=== PATIENT | female | born 1995 | race Caucasian/White ===

== ENCOUNTER 2020-02-15 02:42 | Emergency (ER) | payer OTHER, SELFPAY ==
[2020-02-15 02:59] VITALS: BP 109/69; PULSE 78; RESP 16; TEMP 36.9; BMI 26.9
--- NOTE | 2020-02-15 03:24 | ED_ITS ---
HPI - Headache General Chief Complaint: Headache Stated Complaint: HEADACHE Time Seen by Provider: 02/15/20 03:13 Source: patient Mode of arrival: ambulatory Limitations: no limitations History of Present Illness HPI Narrative: This is a 24-year-old female who presents with complaints of worsening right unilateral headache that she states is causing a lot of pain especially behind her right eye with some associated photosensitivity but denies any double or blurred vision. This is associated with nausea and she states that she has not had a headache like this before. She does endorse that there is a family history migraines. Otherwise, she denies fever, chills, shortness of breath, chest pain / palpitations, GI symptoms other than the nausea and denies any urinary pain/ burning / frequency. LMP- 01/23. Related Data Allergies Allergy/AdvReac Type Severity Reaction Status Date / Time No Known Allergies Allergy Unverified 12/28/19 16:45 [No Known Allergies*] Review of Systems Review of Systems: Pertinent positives and negatives as stated in HPI 10 point review of systems is otherwise negative. PMFSH Past Medical History Source: nursing notes reviewed Social History Social History Alcohol intake: never Smoked in Last 30 Days: No Use of substances other than those prescribed or required for medical reasons: No Advance Directives: No Physical Exam Vital Signs: Vital Signs: Vital Signs Temp Pulse Resp BP Pulse Ox 02/15/20 04:46 79 16 110/67 99 02/15/20 04:15 72 109/71 98 02/15/20 04:00 72 18 109/71 98 02/15/20 02:59 98.5 F 78 16 109/69 Body Mass Index 26.9 VITAL SIGNS: Reviewed. GENERAL: Well developed, well nourished, in no acute distress. HEAD: Normocephalic/atraumatic, EYES: PERRLA, EOMI intact without pain, no nystagmus/pallor/icterus noted EARS: Ext canals without abnormality, TMs non-bulging and non-erythematous NOSE: Nares patent bilateral OROPHARYNX: no oral lesions noted, posterior pharynx clear and non-erythematous without noted tonsillar enlargement/erythema/exudates NECK: Supple, no adenopathy LUNGS: Normal breath sounds. No adventitious sounds or accessory muscle use. SpO2<> CARDIOVASCULAR: Regular rate and rhythm without noted murmurs, no JVD or lower extremity edema. ABDOMEN: Soft, non-tender, non-distended with bowel sounds. No rigidity. No guarding. No palpable masses or hernias noted MUSCULOSKELETAL: No tenderness, deformities, or effusions noted on gross inspection. EXTREMITIES: No cyanosis, clubbing or edema. SKIN: Inspection of the skin reveals no rashes, ulcerations, jaundice, pallor, or petechiae. NEUROLOGIC: Alert and oriented x 4. Strength and sensation to light touch were grossly intact x 4 , cerebellar testing within normal limits, cranial nerves 2- 12 are grossly intact.. Course Course Course Narrative: This is a 24-year-old female with new onset of headache and appears to be migraine in nature, however there is no evidence neurologic deficits and no history to suggest more occult pathology such as mass. On re-evaluation patient has had complete resolution of her symptoms and will be discharged in stable condition with instructions follow-up with her primary care provider. MDM - Headache Lab Data Labs: Lab Results 02/15/20 Range/Units 03:45 Urine Color YELLOW Urine Appearance CLEAR Urine pH 6.0 (5.0-8.0) Ur Specific [place] >= 1.030 H (1.005-1.025) Urine Protein NEG (NEG-TRACE) MG/DL Urine Glucose (UA) NEG (NEG) MG/DL Urine Ketones NEG (NEG) MG/DL Urine Blood NEG (NEG) Urine Nitrite NEG (NEG) Ur Leukocyte Esterase NEG (NEG) Urine Test NEGATIVE (NEGATIVE) Discharge Plan Discharge Clinical Impression: Headache Qualifiers: Headache type: unspecified Headache chronicity pattern: acute headache Intractability: not intractable Qualified Code(s): R51.9 - Headache, unspecified Patient Disposition: Home, Self-Care Instructions: Acute Headache (ED) Additional Instructions: 1. Tylenol 1000 mg, orally, every 6 hours as needed for pain control. Do not exceed 4000 mg within 24 hours. 2. Ibuprofen 400 mg, orally with milk or food, every 6 hours as needed for pain control. 3. Increase fluid hydration especially with water. 4. Please follow-up with your primary care provider for further evaluation and management of your headache. The patient and/or family acknowledge understanding of results (as applicable), diagnosis, treatment plan, need for follow up, and symptoms that should prompt a return to the emergency room. Referrals: Seng Alvarez MD [Primary Care Provider] - 2 days ( For further evaluation management of new onset suspected migraine.)
[2020-02-15 04:00] VITALS: BP 109/71; PULSE 72; RESP 18; O2SAT 98
[2020-02-15 04:00] LABS: Glucose Urine UA NEG (NEG); Leukocyte Esterase Urine NEG (NEG); Nitrite Urine NEG (NEG); Specific Gravity - Urine >= 1.030 (1.005-1.025); Urine Blood NEG (NEG); Urine Ketones NEG (NEG); Urine Protein NEG (NEG-TRACE)
[2020-02-15] MEDS: Acetaminophen 325 MG TABLET 975 MG PO (04:01)
[2020-02-15] MEDS: 0.9 % Sodium Chloride 1,000 ML 1000 ML IV (04:01)
[2020-02-15 04:02] LABS: Appearance Urine CLEAR; Color Urine YELLOW
[2020-02-15] MEDS: diphenhydrAMINE HCL 50 MG/ML VIAL 25 MG IVPUSH (04:02)
[2020-02-15] MEDS: Ketorolac Tromethamine 15 MG/ML VIAL IVPUSH (04:02)
[2020-02-15] MEDS: Metoclopramide HCl 10 MG/2 ML VIAL IVPUSH (04:03)
[2020-02-15 04:05] LABS: UPreg QC Valid YES; Urine Pregnancy NEGATIVE (NEGATIVE)
[2020-02-15 04:15] VITALS: BP 109/71; PULSE 72; O2SAT 98
[2020-02-15 04:46] VITALS: BP 110/67; PULSE 79; RESP 16; O2SAT 99
--- NOTE | 2020-02-15 04:46 | PC.NURSE ---
pt states her pain is gone. vitals stable. skin pink warm and dry. pt is aox3
== END 2020-02-15 05:33 | disposition home or self-care (01) ==
PROVIDERS: Emergency Provider Student in an Organized Health Care Education/Training Program; PCP Internal Medicine
DX: R51.9 Headache, unspecified (principal); M25.522 Pain in left elbow; M25.521 Pain in right elbow
CPT/HCPCS: 81003; 81025; 96361; 96374; 96375; 99284; J1200; J1885; J2765

== ENCOUNTER 2020-03-17 16:01 | Emergency (ER) | payer OTHER, SELFPAY ==
[2020-03-17 16:21] VITALS: BP 108/70; PULSE 81; RESP 16; TEMP 36.7; O2SAT 99; BMI 27.2
--- NOTE | 2020-03-17 17:00 | ED_ITS ---
HPI - General Adult General Chief complaint: Trauma Stated complaint: BROKEN NOSE Time Seen by Provider: 03/17/20 16:25 Source: patient Mode of arrival: ambulatory History of Present Illness HPI narrative: 24-year-old female with no significant past medical history presenting to the emergency department after a fall. Patient states she was caring her groceries up the stairs and was going fast and she fell hitting her face. She denies LOC. She denies anticoagulant use. She states her friend told her that her nose looks broken and to come to the ED. She did have some bleeding from her nose previously which has stopped now. She denies swallowing blood. She denies headache, dizziness, vision changes, vision loss, oral pain, extremity injury, injury to chest, abdomen or back. No incontinence. Her tetanus is up-to-date. Treatments prior to arrival: none Related Data Allergies Allergy/AdvReac Type Severity Reaction Status Date / Time No Known Allergies Allergy Unverified 12/28/19 16:45 [No Known Allergies*] Review of Systems Constitutional: Constitutional: Denies headache(s) Eyes: Eyes: Denies blurry vision and Denies change in vision ENT: Denies dizziness, Denies headache(s), Denies neck pain and Reports nose pain Cardiovascular: Cardiovascular: Denies chest pain and Denies dyspnea Respiratory: Respiratory: Denies dyspnea Gastrointestinal: Gastrointestinal: Denies abdominal pain Musculoskeletal: Musculoskeletal: Denies neck pain Integumentary/Breasts: Comments: Abrasion Neurologic: Denies dizziness and Denies headache(s) Hematologic/Lymphatic: Hematologic/Lymphatic: Denies easy bleeding Allergic/Immunologic: Allergic/Immunologic: Reports no additional allergic/immunologic complaints [facility] Past Medical History Medical History No known health problems Social History Social History Alcohol intake: never Advance Directives: No Advance Directives Information Provided: Yes Physical Exam Vital Signs: Vital Signs: Last Vital Signs Temp 98.1 F 03/17/20 16:21 Pulse 81 03/17/20 16:21 Resp 16 03/17/20 16:21 BP 108/70 03/17/20 16:21 Pulse Ox 99 03/17/20 16:21 Body Mass Index 27.2 Const: Other: Sitting upright texting on the cellphone General: cooperative Orientation/consciousness: patient oriented x3 HENMT: Other: + swelling and tenderness to nose, no zygomatic, maxillar or mandibular tenderness, no trismus, no oral injury or lesions, dentition intact Head: Yes normocephalic, Yes atraumatic and No Santoyo's sign Ears: no external ear abnormalities General nose exam: Normal septum present, normal septum and Other nasal findings present (dried blood noted to nare, no spetal hematoma or deviation) Eyes: Pupils: Equal, round and reactive pupils present EOM: EOMs intact bilaterally Neck: Other: trachea midline Neck: Yes supple and No tender Chest: Chest palpation & inspection: normal inspection of the chest Resp: Effort & Inspection: normal respiratory effort Cardio: Rate: regular rate GI: Inspection: Yes normal to inspection and No distended Skin: Other: abrasion noted to frontal scalp and inferior to right eye, no lacerations, broken acrylic nail, nail bed intact Neuro: General: patient oriented x3 Cranial nerves: Yes Equal, round and reactive pupils present Gait exam (Neuro): Normal gait present Extrem: Other: moving all extremeties spontaneously, no obvious deformities General: Yes normal to inspection Medical Decision Making MDM Narrative Medical decision making narrative: 24-year-old female presenting to the emergency department after a fall Vital stable, nontoxic appearing, hemodynamically stable Full seems mechanical in nature. No presyncopal symptoms reported. Patient de nies LOC, not on anticoagulant use, low concern for intracranial hemorrhage. No concern for neck fracture given no midline tenderness. No injury to her limbs. No evidence thoracoabdominal injury. Patient does have nasal swelling concerning for possible fracture, discussed seeing ENT as an outpatient for this. No facial tenderness besides nasal tenderness to suggest additional fracture. Extraocular movements are intact, with concern for ocular entrapment. No trismus. No evidence of oral injury, dentition intact. She is otherwise neurovascularly intact. Discussed following up with ENT she continues to have swelling and a cosmetic defect to her nose. She is otherwise healthy and does not warrant antibiotics. No indication for imaging at this time. Supportive treatment discussed. Abrasions are superficial no indication for stitches, her tetanus is up-to-date per pt. Discharge Plan Discharge Clinical Impression: Contusion of nose, Fall, Abrasion of face Patient Disposition: Home, Self-Care Instructions: Nasal Contusion (ED) Additional Instructions: You were seen in the emergency department for a fall. You have swelling to your nose, you may have a broken nose. We recommend you wait 2-3 days for the swelling to decrease, if you have malalignment of your nose or appears to have a cosmetic defect we recommend you see the ENT surgeon to discuss further treatment. Return to the emergency department if your symptoms worsen, increased swelling, dizziness, headache, vision changes, weakness, or any other concerning symptoms. Referrals: Ariel Boyd [Physician] - 2 days (if you continue to have swelling or cosmetic defect to your nose )
== END 2020-03-17 17:20 | disposition home or self-care (01) ==
PROVIDERS: Emergency Provider Emergency Medicine; PCP Internal Medicine
DX: S00.33XA Contusion of nose, initial encounter (principal); S00.81XA Abrasion of other part of head, initial encounter; W10.9XXA Fall (on) (from) unspecified stairs and steps, initial encounter; Y93.01 Activity, walking, marching and hiking; Y92.009 Unspecified place in unspecified non-institutional (private) residence as the place of occurrence of the external cause; Y99.9 Unspecified external cause status
CPT/HCPCS: 99283; 99284

== ENCOUNTER 2020-04-21 18:02 | Emergency (ER) | payer OTHER, SELFPAY ==
[2020-04-21 18:14] VITALS: BP 117/71; PULSE 82; RESP 16; TEMP 36.8; O2SAT 98; BMI 25.0
--- NOTE | 2020-04-21 20:43 | XR_ITS ---
EXAMINATION: XR CHEST CLINICAL INFORMATION: Cough COMPARISON: Prior chest March 2018 TECHNIQUE: Frontal view of the chest was obtained. FINDINGS: No significant abnormality is noted involving the heart, lungs, mediastinum, bony thorax or soft tissues. XR/XR chest 1V IMPRESSION: Unremarkable examination.
[2020-04-21 21:06] LABS: MANUAL DIFF FLAG NO
--- NOTE | 2020-04-21 21:06 | ED_ITS ---
HPI - General Adult General Chief complaint: General Medical Stated complaint: VOMITING, Time Seen by Provider: 04/21/20 20:12 Source: patient Mode of arrival: ambulatory Limitations: no limitations History of Present Illness HPI narrative: 24-year-old female , about 8 weeks by date presented with flu-like symptoms, generalized body ache, cough, sore throat, unable to tolerate p.o. intake, patient declined any vaginal bleed, feels slight lower abdominal discomfort only with coughing. Patient had history of vomiting during pregnancies in the past. Related Data Allergies Allergy/AdvReac Type Severity Reaction Status Date / Time No Known Allergies Allergy Unverified 12/28/19 16:45 [No Known Allergies*] Review of Systems Review of Systems: All other systems are reviewed and are negative Constitutional: Reports as per HPI and Reports no additional constitutional complaints Eyes: Reports as per HPI and Reports no additional eye complaints Reports system reviewed and no additional complaints, except as documented Cardiovascular: Reports as per HPI and Reports no additional cardiovascular complaints Respiratory: Reports as per HPI and Reports no additional respiratory complaints Gastrointestinal: Reports as per HPI and Reports no additional gastrointestinal complaints Genitourinary: Reports no additional female genitourinary complaints Musculoskeletal: Reports no additional musculoskeletal complaints Skin/Breast: Reports system reviewed and no additional complaints, except as docu Psychiatric: Reports no additional psychiatric complaints Endocrine: Reports no additional endocrine complaints Hematologic/Lymphatic: Reports no additional hematologic/lymphatic complaints Allergic/Immunologic: Reports no additional allergic/immunologic complaints Reports system reviewed and no additional complaints, except as documented and Reports Abnormal speech present PMFSH Past Medical History Medical History No known health problems Social History Social History Alcohol intake: never Smoking Status: Never smoker Use of substances other than those prescribed or required for medical reasons: No Advance Directives: No Advance Directives Information Provided: Yes Physical Exam Vital Signs: Vital Signs: Last Vital Signs Temp 98.2 F 04/21/20 18:14 Pulse 76 04/21/20 21:11 Resp 18 04/21/20 21:11 BP 108/59 L 04/21/20 21:11 Pulse Ox 100 04/21/20 21:11 Body Mass Index 25.0 Vital signs have been reviewed as normal and appeared to be correct. Blood pressure normal. Heart rate normal. Respiration rate normal. Temperature normal. Oxygen saturation normal. Appearance: Alert. Oriented X3. No acute distress. Head: Normal external exam. Normocephalic. Atraumatic. No Santoyo signs noted. No raccoon eyes noted Eyes: PERRLA. EOMI. Conjunctiva and sclera normal. Eyelids normal. ENT: EAC normal. TM's Normal. Pharynx normal. Uvula midline. Moist mucous membranes. No trismus noted. No drooling noted. No muffled voice noted. Neck: Normal inspection. Neck supple. FROM. No adenopathy. Thyroid Normal. No meningeal signs. No neck mass noted. CVS: Normal heart rate and rhythm. Heart sound normal. No murmurs noted. Pulses normal throughout. Respiratory: No respiratory distress. Painless inspiration. Breath sounds normal. No wheezes/rales/rhonchi noted. Chest nontender. No accessory muscle usage noted or decreased air movement noted. Abdomen: Soft and nontender. Bowel sounds normal in all 4 quadrants. No distention noted. No organomegaly noted. No visible injury noted. Back: No CVA tenderness. Full range of motion noted. Skin: Skin warm and dry. Normal skin color. Normal skin turgor. No rashes/lesions/lacerations noted. Extremities: No lower extremity edema. Extremities exhibit normal range of motion. Extremities nontender. Neuro: Oriented X 3. No motor deficit. No sensory deficit. Reflexes normal. Course Course Course Narrative: Assessment and plan. 24-year-old female about 8 weeks by date presented with nausea and vomiting, symptoms which consistent with a viral syndrome, patient tested positive for COVID, otherwise rest of the labs are unremarkable, chest x-ray is unremarkable. Patient has no vaginal bleed or abdominal pain. Blood type is A positive and labs are unremarkable. Patient in the ED received IV fluids hydration/Zofran, patient feels better with IV fluids, able to tolerate p.o. intake. Patient will be discharged home and self quarantine for 2 weeks. Patient was instructed to seek immediate medical attention if any difficulty breathing or worsening of the symptoms. Medical Decision Making Lab Data Result diagrams: 04/21/20 20:59 04/21/20 20:59 Labs: Lab Results 04/21/20 04/21/20 04/21/20 Range/Units 20:59 20:59 20:59 WBC 2.9 L (4.8-10.8) X10*3/uL RBC 4.15 L (4.20-5.50) X10*6/uL Hgb 12.1 (12.0-16.0) g/dl Hct 35.0 L (37-47) % MCV 84.3 (80-98) fL MCH 29.2 (27.0-33.0) pg MCHC 34.6 (31.0-35.0) g/dl RDW 12.5 (11.0-16.0) % Plt Count 234 (160-400) X10*3/uL MPV 9.1 L (9.4-12.3) fL Immature Gran % (Auto) 0.0 (0.0-0.4) % Neut % (Auto) 57.6 (45-73) % Lymph % (Auto) 31.8 (20-40) % [place] % (Auto) 10.3 (2-11) % Eos % (Auto) 0.3 (0-4) % Baso % (Auto) 0.0 (0-2) % Lymph # (Auto) 0.9 L (1.2-4.9) X10*3/uL [place] # (Auto) 0.3 (0.1-1.2) X10*3/uL Eos # (Auto) 0.0 (0.0-0.4) X10*3/uL Baso # (Auto) 0.0 (0.0-0.2) X10*3/uL Abs Immat Gran (auto) 0.00 (0.00-0.03) X10*3/uL Absolute Neuts (auto) 1.7 L (2.0-8.3) X10*3/uL Absolute Nucleated RBC 0.000 (0.0-0.012) X10*3/uL Nucleated RBC % (auto) 0.0 (0.0-0.2) /100WBC Sodium 137 (135-145) mmol/L Potassium 4.2 (3.3-5.1) mmol/l Chloride 103 (96-108) mmol/L Carbon Dioxide 22 (22-29) mmol/L Anion Gap 16 (12-20) BUN 6 L (9-16) mg/dL Creatinine 0.57 (0.5-1.4) mg/dL Estim Creat Clear Calc 135.7 Estimated GFR > 60 Random Glucose 83 (60-115) mg/dL Calcium 8.8 (8.4-10.2) mg/dL Total Bilirubin 0.6 (0.0-1.0) mg/dL Direct Bilirubin 0.3 (0.0-0.5) mg/dL AST 31 (5-31) U/L ALT 36 H (0-31) U/L Alkaline Phosphatase 102 (39-117) U/L Total Protein 8.0 (6.5-8.0) g/dL Albumin 4.2 (3.5-5.0) g/dL Lipase 21 (8-78) U/L Beta HCG, Quant 338958 mIU/mL Coronavirus (PCR) POSITIVE A (Negative) Influenza Type A (PCR) NEGATIVE (Negative) Influenza Type B (PCR) NEGATIVE (Negative) RSV RNA Qual (PCR) NEGATIVE (Negative) Imaging Data Chest x-ray: Radiologist's impression: Unremarkable examination. 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 Referrals: Seng Alvarez MD [Primary Care Provider] - 2 weeks Stand Alone Forms: Work/School Release
[2020-04-21 21:08] LABS: Eosinophils Percent Auto 0.3 % (0-4); Hemoglobin 12.1 g/dl (12.0-16.0); Lymphocytes Absolute Auto 0.9 X10*3/uL (1.2-4.9); Lymphocytes Percent Auto 31.8 % (20-40); Mean Corpuscular HGB Conc 34.6 g/dl (31.0-35.0); Mean Corpuscular Hemoglobin 29.2 pg (27.0-33.0); Mean Corpuscular Volume 84.3 fL (80-98); Mean Platelet Volume 9.1 fL (9.4-12.3); Monocytes Absolute Auto 0.3 X10*3/uL (0.1-1.2); Monocytes Percent Auto 10.3 % (2-11); Neutrophils Absolute Auto 1.7 X10*3/uL (2.0-8.3); Neutrophils Percent Auto 57.6 % (45-73); Platelet Count 234 X10*3/uL (160-400); Red Blood Count 4.15 X10*6/uL (4.20-5.50); Red Cell Distribution Width 12.5 % (11.0-16.0); White Blood Count 2.9 X10*3/uL (4.8-10.8)
[2020-04-21] MEDS: ondansetron HCL 4 MG/2 ML VIAL IVPUSH (21:10)
[2020-04-21 21:11] VITALS: BP 108/59; PULSE 76; RESP 18; O2SAT 100
[2020-04-21] MEDS: 0.9 % Sodium Chloride 1,000 ML 999 ML IVCONT (21:11)
[2020-04-21 21:44] LABS: Alanine Aminotransferase 36 U/L (0-31); Albumin Level 4.2 g/dL (3.5-5.0); Alkaline Phosphatase 102 U/L (39-117); Anion Gap 16 (12-20); Aspartate Amino Transferase 31 U/L (5-31); Bilirubin Direct 0.3 mg/dL (0.0-0.5); Bilirubin Total 0.6 mg/dL (0.0-1.0); Blood Urea Nitrogen 6 mg/dL (9-16); Calcium 8.8 mg/dL (8.4-10.2); Carbon Dioxide 22 mmol/L (22-29); Chloride 103 mmol/L (96-108); Creatinine Clr Calc Pharmacy 135.7; Estimated Glomerular Filt Rate > 60; Glucose Random 83 mg/dL (60-115); Lipase 21 U/L (8-78); Potassium 4.2 mmol/l (3.3-5.1); Sodium 137 mmol/L (135-145)
[2020-04-21 22:54] LABS: Influenza A PCR NEGATIVE (Negative); Influenza B PCR NEGATIVE (Negative); Resp Syncy Virus RNA Qual PCR NEGATIVE (Negative); SARS COV2 PCR INHOUSE POSITIVE (Negative)
--- NOTE | 2020-04-21 23:49 | PC.NURSE ---
per md, patient does not meet clinical indication for oncall ultrasound team to come in. patient instructed to monitor for cramping/bleeding.
== END 2020-04-22 00:25 | disposition home or self-care (01) ==
PROVIDERS: Emergency Provider Emergency Medicine; PCP Internal Medicine
DX: O98.511 Other viral diseases complicating pregnancy, first trimester (principal); Z3A.08 8 weeks gestation of pregnancy
CPT/HCPCS: 0241U; 36415; 71045; 80048; 80076; 83690; 84702; 85025; 96361; 96374; 99284; J2405

== ENCOUNTER 2020-04-29 11:26 | Outpatient (REF) | payer OTHER, SELFPAY | END 2020-04-29 11:27 | disposition home or self-care (01) | LOC: HO.LAB 11:26 | PROVIDERS: PCP Internal Medicine; Visit Provider Internal Medicine | DX: Z20.822 Contact with and (suspected) exposure to COVID-19 (principal) | CPT/HCPCS: 36415; C9803; U0003 ==

== ENCOUNTER 2020-05-13 11:12 | Outpatient (REF) | payer OTHER, SELFPAY | END 2020-05-13 11:13 | disposition home or self-care (01) | LOC: HO.LAB 11:12 | PROVIDERS: Visit Provider Internal Medicine | DX: Z20.822 Contact with and (suspected) exposure to COVID-19 (principal) | CPT/HCPCS: 36415; C9803; U0003; U0005 ==

== ENCOUNTER 2020-10-16 17:09 | Emergency (ER) | payer OTHER, SELFPAY ==
[2020-10-16 18:12] VITALS: BP 111/62; PULSE 107; RESP 107; TEMP 36.3; O2SAT 100; BMI 29.2
--- NOTE | 2020-10-16 18:26 | ED.GENADULT ---
HPI - General Adult General Chief complaint: General Medical Stated complaint: discomfort - 33 weeks preg Time Seen by Provider: 10/16/20 18:22 Source: patient Mode of arrival: ambulatory Limitations: no limitations History of Present Illness MD complaint: URI back pain and intermittent contractions Onset (ago): hour(s) (12 hours ago) Location: mouth, back and abdomen Severity: mild Quality: aching and dull Pain Consistency: intermittent Relieving factors: none Exacerbating factors: none Associated symptoms: other (runny nose, sore throat, back pain intermittent contractions) Treatments prior to arrival: none and other (did try to call her OB today without a call back) Related Data Home Medications Medication Instructions Recorded Confirmed ferrous gluconate 1 tab PO QAM 10/16/20 10/16/20 Allergies Allergy/AdvReac Type Severity Reaction Status Date / Time No Known Allergies Allergy Verified 10/16/20 18:12 [No Known Allergies*] Review of Systems Review of Systems: Constitutional : No Weight loss, No Fever, pos Chills, No Fatigue, No Malaise ENT/Mouth : pos sore throat, pos Rhinorrhea Eyes: No Eye Pain, No Swelling, No Redness Cardiovascular : No Chest Pain, No SOB, No Dyspnea on Exertion, No Orthopnea, No Edema, No Palpitations Respiratory : No Cough, No Sputum, No Wheezing Gastrointestinal : No Nausea, No Vomiting, No Diarrhea, No Constipation, pos abdominal Pain, No Hematochezia, No Melena Genitourinary : No Dysuria, No Urinary Frequency, No Hematuria, no bleeding, no leakage of fluids Musculoskeletal : No joint pain, pos Myalgias, No Joint Swelling, pos backl pain Skin : No Skin Lesions, No rash Neuro : No Weakness, No Numbness, No Dizziness, No Headache Psych : No Anxiety/Panic, No Depression Heme/Lymph: No Bruising, No Bleeding,No Lymphadenopathy Endocrine : No Polyuria, No Polydipsia All other systems reviewed and are negative PMFSH Past Medical History Attestation statement: The following information was validated with the patient. Medical History COVID-19 Social History Social History (Updated 10/16/20 @ 18:59 by Kavita Shell DO) Alcohol intake: never Patient Tobacco Use Status: Never used Tobacco Smoked in Last 30 Days: No Use of substances other than those prescribed or required for medical reasons: No Advance Directives: No Advance Directives Information Provided: No Patient : Yes Physical Exam Vital Signs: Vital Signs: Last Vital Signs Temp 97.4 F 10/16/20 18:12 Pulse 80 10/16/20 19:36 Resp 18 10/16/20 19:36 BP 115/68 10/16/20 19:36 Pulse Ox 100 10/16/20 19:36 Body Mass Index 29.2 Appearance: Alert. Oriented X3. No acute distress. Eyes: Pupils equal, round and reactive to light. ENT: Pharynx normal. Neck: Normal inspection. Neck supple. CVS: Normal heart rate and rhythm. Pulses normal. Respiratory: No respiratory distress. Breath sounds normal. Abdomen: Soft and non-tender. : external os is 3 and internal feels 2 high riding steriole procedure Back: ttp along lower lumbar lateral spine no midline ttp Skin: Skin warm and dry. Normal skin color. Normal skin turgor. Extremities: No lower extremity edema. No calf ttp Neuro: Oriented X 3. No motor deficit. No sensory deficit. Course Course Course Narrative: call to the OB covering for Jaimie Griermanny - discussed suspicions of viral syndrome vs UTI but cannot fully rule out labor given her intermittent contractions all day and the fact that she had her two prior children at 35 and 36 weeks- Dr. Bernal states our OB needs to come to the ED to rule out labor and that she cannot make an assessment or offer advice. She would also not take the patient at [facility] to r/o labor given she is 33 weeks as the patient would then need to be transferred to [facility]. discussion with our OB Dr. Gerard given the patient is having intermittent contractions do not delay care and [place] [facility] [place], would not do pelvic exam as you could interfere with FFN results [place] [facility] [place] 650pm - patient aware and upset as she tried to contact her OB all day without a call back, discussed with [place] [facility] [place] need transfer to [place] at this time would recommend if she is stable to have OB here see her or have the patient go to [facility] - Dr. Multani dilation check under sterile precautions 3cm external 2cm internal having intermittent contractions about every 20 to 30 mins will [place] [facility] [place] about taking patient via ambulance now - Dr. Gerard aware and recommends transfer to [facility] again, IV line started repeat call to Dr. Carlson 724pm - accepts transfer 339pm, no medications at this time they will evaluate her Medical Decision Making MDM Narrative Medical decision making narrative: 25 yo female at 33 weeks cared for by [facility] OB but unable to reach them today woke up with c/o URI and low back pain with intermittent contractions - at this time UA ordered, COVID swab though she was positive back in April, PO tylenol call to her OB given her symptoms and intermittent contractions, no loss of fluids, possible viral syndrome vs UTI vs labor Lab Data Labs: Lab Results 10/16/20 10/16/20 Range/Units 18:47 18:54 Urine Color YELLOW Urine Appearance HAZY Urine pH 7.5 (5.0-8.0) Ur Specific [place] 1.010 (1.005-1.025) Urine Protein NEG (NEG-TRACE) MG/DL Urine Glucose (UA) NEG (NEG) MG/DL Urine Ketones NEG (NEG) MG/DL Urine Blood NEG (NEG) Urine Nitrite NEG (NEG) Ur Leukocyte Esterase NEG (NEG) COVID-19 (ROCIO) Negative (Negative) COVID-19 Clin Com See Note Critical Care Time Critical Care Time Critical Care Time: Yes Total Critical Care Time: 60 Attestation: medical consults, transfer to tertiary center I attest to this time spent taking care of the patient Discharge Plan Discharge Clinical Impression: Acute viral syndrome Abdominal pain Qualifiers: Abdominal location: generalized Qualified Code(s): R10.84 - Generalized abdominal pain Patient Disposition: Xfer Acute Care Hospital Transfer Details: [facility] Prescriptions: No Action ferrous gluconate 324 mg (38 mg iron) tablet 1 tab PO QAM RF: 0 Interventions: Acute Care Transfer Worksheet (ED) Last Done: 10/16/20 19:53 Discharge Date/Time: 10/16/20 19:54
[2020-10-16] MEDS: Acetaminophen 325 MG TABLET 650 MG PO (18:44)
[2020-10-16 19:00] LABS: Glucose Urine UA NEG (NEG); Leukocyte Esterase Urine NEG (NEG); Nitrite Urine NEG (NEG); PH 7.5 (5.0-8.0); Urine Blood NEG (NEG); Urine Ketones NEG (NEG); Urine Protein NEG (NEG-TRACE)
[2020-10-16 19:02] LABS: Appearance Urine HAZY; Color Urine YELLOW
[2020-10-16 19:10] LABS: COVID-19 Test Negative (Negative)
--- NOTE | 2020-10-16 19:14 | PC.NURSE ---
Per md pt is 1-2 cm dilated.
--- NOTE | 2020-10-16 19:23 | PM.OBCN ---
OB Consult Note - [facility] Data Service Date: 10/16/20 Primary Care Provider: Seng Alvarez MD Narrative I was consulted regarding Kylah Peter is a 25 year old female at 33 weeks of gestation who presented the emergency room complaining of runny nose and abdominal tightening. The patient is currently under the care at [facility], she called the office all day did not get a call back with the same symptoms so she decided to come into the emergency room. No vaginal bleeding or leakage of fluid no vaginal discharge or any other symptoms. COVID test was sent IV fluids started OB PMFSH Past Medical History Medical History COVID-19 Social History Social History (Updated 10/16/20 @ 18:59 by Kavita Shell DO) Alcohol intake: never Patient Tobacco Use Status: Never used Tobacco Smoked in Last 30 Days: No Use of substances other than those prescribed or required for medical reasons: No Advance Directives: No Advance Directives Information Provided: No Patient : Yes Meds Allergies Allergy/AdvReac Type Severity Reaction Status Date / Time No Known Allergies Allergy Verified 10/16/20 18:12 [No Known Allergies*] Active Medications: Current Medications Generic Name Dose Route Start Last Admin Trade Name Freq PRN Reason Stop Dose Admin Sodium Chloride 1,000 mls @ 999 mls/hr 10/16/20 19:30 Ns IVCONT 10/16/20 20:30 .[id number] SASCHA Home Medications Medication Instructions Recorded Confirmed Last Taken Type ferrous gluconate 1 tab PO QAM 10/16/20 10/16/20 Unknown History OB Consult Results Labs Labs: Urine 10/16/20 Range/Units 18:54 Urine Color YELLOW Urine Appearance HAZY Urine pH 7.5 (5.0-8.0) Ur Specific [place] 1.010 (1.005-1.025) Urine Protein NEG (NEG-TRACE) MG/DL Urine Glucose (UA) NEG (NEG) MG/DL OB - CN: A/P Assessment and Plan (1) : Status: Acute Assessment and Plan: I was called initially at 06:[address] Shell regarding this patient, recommended immediate transfer of the patient are the emergency room to [facility] since she is pre term with symptoms of labor with no availability of OB monitors and OB nurses, we had a discussion regarding the pros and cons of a pelvic exam, pros being making sure the patient is stable to be discharged versus the cons of a pelvic exam might cause false positive fibronectin. Second call was at 19:[address] Shell after she called [facility], who declined to accept the transfer and recommended a pelvic exam and to discharge the patient is from the emergency room and asked the patient to drive herself to [facility] triage area. Recommended pelvic exam to make sure the patient is stable prior to transfer. Third call by Dr. Shell at 07:21, cervical exam is 2 cm internal os, 3 cm external os. recommended betamethasone 12 mg IM stat and transfer the patient to stat by ambulance after calling [facility]. I inform Dr. Shell that I will come in to assist with the call to [facility] and with the patient management
[2020-10-16] MEDS: 0.9 % Sodium Chloride 1,000 ML 999 ML IVCONT (19:35)
[2020-10-16 19:36] VITALS: BP 115/68; PULSE 80; RESP 18; O2SAT 100
== END 2020-10-16 19:54 | disposition short-term general hospital (02) ==
PROVIDERS: Emergency Provider Emergency Medicine; PCP Internal Medicine
DX: O26.893 Other specified pregnancy related conditions, third trimester (principal); R10.84 Generalized abdominal pain; O98.513 Other viral diseases complicating pregnancy, third trimester; B34.9 Viral infection, unspecified; O09.213 Supervision of pregnancy with history of pre-term labor, third trimester; Z3A.33 33 weeks gestation of pregnancy; Z20.822 Contact with and (suspected) exposure to COVID-19; Z86.16 Personal history of COVID-19
CPT/HCPCS: 36415; 81003; 87635; 99285; 99291

== ENCOUNTER 2021-05-19 09:30 | Outpatient (REF) | payer OTHER, SELFPAY ==
[2021-05-19 09:54] LABS: MANUAL DIFF FLAG NO
[2021-05-19 10:05] LABS: Basophils Percent Auto 0.3 % (0-2); Eosinophils Percent Auto 0.3 % (0-4); Hematocrit 33.9 % (37.0-47.0); Hemoglobin 11.8 g/dl (12.0-16.0); Lymphocytes Absolute Auto 1.5 X10*3/uL (1.2-4.9); Lymphocytes Percent Auto 42.7 % (20-40); Mean Corpuscular HGB Conc 34.8 g/dl (31.0-35.0); Mean Corpuscular Hemoglobin 29.3 pg (27.0-33.0); Mean Corpuscular Volume 84.1 fL (80.0-98.0); Mean Platelet Volume 9.7 fL (9.4-12.3); Monocytes Absolute Auto 0.3 X10*3/uL (0.1-1.2); Monocytes Percent Auto 8.3 % (2-11); Neutrophils Absolute Auto 1.7 x10*3/uL (2.0-8.3); Neutrophils Percent Auto 48.4 % (45-73); Platelet Count 247 X10*3/uL (160-400); Red Blood Count 4.03 X10*6/uL (4.20-5.50); Red Cell Distribution Width 13.2 % (11.0-16.0); White Blood Count 3.5 X10*3/uL (4.8-10.8)
[2021-05-19 11:00] LABS: Alanine Aminotransferase 21 U/L (0-31); Albumin Level 4.1 g/dL (3.5-5.0); Alkaline Phosphatase 59 U/L (39-117); Anion Gap 10 (12-20); Aspartate Amino Transferase 16 U/L (5-31); Blood Urea Nitrogen 13 mg/dL (9-16); Calcium 9.2 mg/dL (8.4-10.2); Carbon Dioxide 25 mmol/L (22-29); Chloride 108 mmol/L (96-108); Estimated Glomerular Filt Rate > 60; Glucose Random 79 mg/dL (60-115); Potassium 4.3 mmol/L (3.3-5.1); Sodium 139 mmol/L (135-145); Total Protein 7.9 g/dL (6.5-8.0)
== END 2021-05-19 09:31 | disposition home or self-care (01) ==
LOC: HO.LAB 09:30
PROVIDERS: PCP Internal Medicine; Visit Provider Internal Medicine
DX: L71.9 Rosacea, unspecified (principal)
CPT/HCPCS: 36415; 80053; 85025

== ENCOUNTER 2021-07-11 19:29 | Emergency (ER) | payer OTHER, SELFPAY ==
--- NOTE | ~2021-07-11 | CT_ITS ---
EXAMINATION: CT ANGIOGRAM OF THE CHEST WITH CONTRAST (CT PULMONARY ANGIOGRAM FOR PE) CT ABDOMEN/PELVIS WITH CONTRAST CLINICAL INFORMATION: post op, shortness of breath and abd pain. Recent long flight COMPARISON: None TECHNIQUE: Prior to contrast administration, noncontrast localization images were obtained. Subsequently, multidetector volumetric imaging was performed from the thoracic inlet through the pubic symphysis following the administration of 85 mL Omnipaque 350 intravenous contrast. Postcontrast images of the chest were acquired during the pulmonary angiographic phase, while imaging through the abdomen and pelvis was performed during the portal venous phase. No contrast reaction reported Sagittal, coronal, and MIP oblique sagittal reformatted images were obtained on the CT workstation, uploaded to PACS, and reviewed. This CT examination was performed using dose optimization techniques as appropriate, variously including the following: *Automated exposure control *Adjustment of mA and/or kV according to patient size (this includes techniques or standardized protocols for targeted exams where dose is matched to indication/reason for exam; i.e. extremities or head) *Use of iterative reconstruction technique Total exam dose-length product 723 mGy-cm FINDINGS: QUALITY OF STUDY/CONTRAST BOLUS: Satisfactory. PULMONARY ARTERIES: No central or segmental pulmonary emboli. THORACIC AORTA: No aneurysm or dissection. LUNG: No focal consolidation, nodules or masses. PLEURA: No pleural effusion or pneumothorax. MEDIASTINUM: Normal heart size. No pericardial effusion. No hilar or mediastinal lymphadenopathy. No evidence of septal bowing or right heart strain. No reflux of contrast into the hepatic veins to suggest elevated right heart pressures. CHEST WALL/AXILLA: Bilateral retropectoral silicone breast implants. There is small fluid surrounding the left breast implant as well as increased fluid within the retroglandular fat of the left breast with respect to the right, and shotty left axillary lymph nodes. HEPATOBILIARY: Liver normal in size, contour and morphology. No suspicious lesions. No intra or extrahepatic biliary dilation. Gallbladder unremarkable. PANCREAS: Unremarkable. SPLEEN: Unremarkable. ADRENAL GLANDS: Unremarkable. morphology demonstrating symmetric enhancement. There is a subcentimeter simple cyst in the right kidney which is benign and requires no further follow-up. No suspicious renal cysts or masses. No hydronephrosis or perinephric abnormality.. GASTROINTESTINAL TRACT: No bowel related abnormalities. PELVIC VISCERA: Unremarkable. LYMPH NODES: No lymphadenopathy. PERITONEUM/BODY WALL: No ascites. There is fat stranding within the lower abdominal subcutaneous fat in the transversely oriented fluid collection superficial to the rectus musculature most compatible with a seroma in the setting of abdominoplasty/panniculectomy. Fat stranding also present within the subcutaneous fat posteriorly along the lower back and bilateral flank regions. VASCULAR STRUCTURES: Unremarkable. OSSEOUS STRUCTURES: No acute or suspicious osseous abnormalities. CT/CT angio chest PE protocol IMPRESSION: * No evidence of pulmonary embolism * No acute pulmonary parenchymal abnormalities. * No acute visceral abdominopelvic abnormality. * Bilateral retropectoral silicone breast implants. There is simple fluid surrounding the left breast implant as well as increased edema/fluid within the retroglandular fat of the left breast and reactive shotty left axillary lymph nodes, within normal limits in the early postoperative period. * Small/thin seroma within the lower abdominal subcutaneous fat overlying the rectus musculature as well as subcutaneous fat stranding within the lower abdominal subcutaneous fat, along the lower back and in the bilateral flank regions compatible with post abdominoplasty changes. VTE:
[2021-07-11 19:52] VITALS: BP 132/81; PULSE 96; RESP 14; TEMP 37.1; O2SAT 100; BMI 27.4
[2021-07-11 20:16] LABS: MANUAL DIFF FLAG NO
[2021-07-11 20:19] LABS: Eosinophils Absolute Auto 0.1 X10*3/uL (0.0-0.4); Eosinophils Percent Auto 1.6 % (0-4); Imm Gran Abs Auto 0.01 X10*3/uL (0.00-0.03); Imm Gran Pct Auto 0.3 % (0.0-0.4); Lymphocytes Absolute Auto 1.3 X10*3/uL (1.2-4.9); Lymphocytes Percent Auto 34.2 % (20-40); Mean Corpuscular Hemoglobin 26.9 pg (27.0-33.0); Monocytes Absolute Auto 0.3 X10*3/uL (0.1-1.2); Neutrophils Absolute Auto 2.1 x10*3/uL (2.0-8.3); Neutrophils Percent Auto 56.9 % (45-73); Platelet Count 342 X10*3/uL (160-400); Red Cell Distribution Width 13.3 % (11.0-16.0); White Blood Count 3.7 X10*3/uL (4.8-10.8)
[2021-07-11 20:43] LABS: Albumin Level 3.8 g/dL (3.5-5.0); Alkaline Phosphatase 79 U/L (39-117); Anion Gap 10 (12-20); Bilirubin Total 0.4 mg/dL (0.0-1.0); Blood Urea Nitrogen 12 mg/dL (9-16); Calcium 9.1 mg/dL (8.4-10.2); Carbon Dioxide 25 mmol/L (22-29); Chloride 108 mmol/L (96-108); Creatinine Clr Calc Pharmacy 150.8; Estimated Glomerular Filt Rate > 60; Glucose Random 94 mg/dL (60-115); Potassium 4.1 mmol/L (3.3-5.1); Sodium 139 mmol/L (135-145); Total Protein 7.2 g/dL (6.5-8.0)
[2021-07-12 00:19] VITALS: PULSE 88; O2SAT 100
--- NOTE | 2021-07-12 00:50 | ED_ITS ---
HPI - General Adult General Chief complaint: Wound/Laceration Stated complaint: ?water retention, post surgery Time Seen by Provider: 07/11/21 21:53 Source: patient Mode of arrival: ambulatory Limitations: no limitations History of Present Illness HPI narrative: This is a 25-year-old female presenting to the emergency department with complaints of postop complications including pleuritic chest pain, shortness of breath, red swollen left breast. On 06/17/2021 patient had a [place] butt lift, tummy tuck and breast augmentation done in [place]. She came back from [place] on 07/01/2021 a flight that lasted approximately 5 hours. Patient reports no complications during surgery. She is not on blood thinners. Patient tells me she is having chest pain worse with inspiration. Substernal nonradiating. She is also complaining of shortness of breath worse with exertion. And she reports that her left breast is swollen, tender and red. She denies fevers and chills nausea, vomiting, abdominal pain, changes in bowel habits, abnormal bruising. Patient does not have any drains. She tells me that her wound care has been done by her masseuse. Onset (ago): day(s) (1) Location: chest and abdomen Radiation: non-radiation Severity: severe Severity scale (1-10): 10 Quality: stabbing and sharp Pain Consistency: constant Relieving factors: none Exacerbating factors: none Associated symptoms: denies other symptoms Treatments prior to arrival: none Related Data Previous Rx's Medication Instructions Recorded cephalexin 500 mg tablet 500 mg PO Q6H 7 Days #28 tab 07/12/21 doxycycline hyclate 100 mg capsule 100 mg PO BID 7 Days #14 cap 07/12/21 ferrous sulfate 325 mg (65 mg 325 mg PO DAILY #10 tab 07/12/21 iron) tablet,delayed release Allergies Allergy/AdvReac Type Severity Reaction Status Date / Time No Known Allergies Allergy Verified 07/11/21 20:02 Review of Systems Review of Systems: Constitutional : No Weight loss, No Fever, No Chills, No Fatigue, No Malaise ENT/Mouth : No sore throat, No Rhinorrhea Eyes: No Eye Pain, No Swelling, No Redness Cardiovascular : No Chest Pain, No SOB, No Dyspnea on Exertion, No Orthopnea, No Edema, No Palpitations Respiratory : No Cough, No Sputum, No Wheezing Gastrointestinal : No Nausea, No Vomiting, No Diarrhea, No Constipation, No abdominal Pain, No Hematochezia, No Melena Genitourinary : No Dysuria, No Urinary Frequency, No Hematuria, Musculoskeletal : No joint pain, No Myalgias, No Joint Swelling Skin : No Skin Lesions, No rash Neuro : No Weakness, No Numbness, No Dizziness, No Headache Psych : No Anxiety/Panic, No Depression All other systems reviewed and are negative Yes all other systems are reviewed and are negative [facility] Past Medical History Attestation statement: The following information was validated with the patient. Source: old records reviewed and nursing notes reviewed Social History Social History Advance Directives: No Physical Exam ED Vital Signs: Vital Signs - 24 hr 07/11/21 19:52 07/12/21 00:19 07/12/21 02:06 Temperature 98.8 F Pulse Rate 96 88 88 Respiratory Rate 14 Blood Pressure 132/81 Pulse Oximetry 100 100 100 BMI result Body Mass Index 27.4 Vital signs stable. Afebrile. Appearance: Alert.? Oriented X3.? No acute distress.? Head: Normocephalic, atraumatic, no step-offs or deformities Eyes: Pupils equal, round and reactive to light.? ENT: Pharynx normal.? Neck: Normal inspection.? Neck supple.? CVS: Normal heart rate and rhythm.? Pulses normal.? Respiratory: No respiratory distress.? Breath sounds normal.? Abdomen: Soft and nontender.? Skin: Skin warm and dry.? Normal skin color.? Normal skin turgor.? Breast: Red, tender, engorged left breast (worse around areola). Right breast normal. Left breast concerning for abscess/cellulitis. Extremities: No lower extremity edema.? No calf ttp. 5/5 strength to bilateral upper and lower extremities Back: No midline tenderness, no C-spine tenderness, full range of motion, no CVA tenderness bilaterally Neuro: Oriented X 3.? No motor deficit.? No sensory deficit. CN 2-12 intact Course Reevaluation(s) Reevaluation #1: CBC with a leukopenia, and a normocytic anemia which patient tells me she has always had. She denies being on her menses and rectal bleeding. No acute electrolyte abnormalities. Lactic acid within normal limits. Troponin negative, EKG nonischemic. Unlikely ACS. BNP normal unlikely heart failure. D-dimer was elevated could be secondary to postsurgical state. CTA with no PE. There is no evidence of parenchymal abnormalities or pneumonia. There is retropectoral silicone breast implants. And there is simple fluid surrounding the left breast which could be normal in the postoperative setting. There small/than seromas within the lower abdomen subcutaneous fat overlying the rectus musculature with some fat stranding again likely normal findings status post operation. At this time patient's history and physical examination consistent with cellulitis to the left breast. Patient will be placed on antibiotic therapy. Dual treatment. I will advise her to follow-up with her PCP. I also advised her to return with new or worsening symptoms. Her lungs are clear upon my exam. Vital signs are stable she is saturating 100% on room air normal respirations. Patient does tell me she feels slightly anxious. Shortness of breath could be secondary to anxiety. Vital signs are stable PE has been ruled out. Time: 02:14 Medical Decision Making MDM Narrative Medical decision making narrative: [age] yo m presents w/ post op complications, sob and pleuritic CP X1 day. Breast augmentation, [place] butt lift, tummy tuck done in [place] in June 2021. Recent travel PE significant for red swollen, warm, tender left breast. RRR. Lungs clear. Abdomen soft non tender non distended. Negative elizabeth b/l. VSS Will rule out abscess. Internal bleeding. PE. Medical Records Medical records reviewed: Yes I reviewed the patient's medical records. Lab Data Lab results reviewed: Yes I reviewed the patient's lab results. Result diagrams: 07/11/21 20:11 07/11/21 20:10 Labs: Lab Results 07/11/21 07/11/21 07/12/21 Range/Units 20:10 20:11 00:50 WBC 3.7 L (4.8-10.8) X10*3/uL RBC 3.27 L (4.60-5.80) X10*6/uL Hgb 8.8 L (14.0-18.0) g/dl Hct 27.8 L (42.0-52.0) % MCV 85.0 (80.0-98.0) fL MCH 26.9 L (27.0-33.0) pg MCHC 31.7 (31.0-36.0) g/dl RDW 13.3 (11.0-16.0) % Plt Count 342 (160-400) X10*3/uL MPV 9.2 L (9.4-12.4) fL Immature Gran % (Auto) 0.3 (0.0-0.4) % Neut % (Auto) 56.9 (45-73) % Lymph % (Auto) 34.2 (20-40) % [place] % (Auto) 7.0 (2-11) % Eos % (Auto) 1.6 (0-4) % Baso % (Auto) 0.0 (0-2) % Lymph # (Auto) 1.3 (1.2-4.9) X10*3/uL [place] # (Auto) 0.3 (0.1-1.2) X10*3/uL Eos # (Auto) 0.1 (0.0-0.4) X10*3/uL Baso # (Auto) 0.0 (0.0-0.2) X10*3/uL Abs Immat Gran (auto) 0.01 (0.00-0.03) X10*3/uL Absolute Neuts (auto) 2.1 (2.0-8.3) x10*3/uL Absolute Nucleated RBC 0.000 (0.0-0.012) X10*3/uL Nucleated RBC % (auto) 0.0 (0.0-0.2) /100WBC D-Dimer High Sensitivty 760 NG/ML Sodium 139 (135-145) mmol/L Potassium 4.1 (3.3-5.1) mmol/L Chloride 108 (96-108) mmol/L Carbon Dioxide 25 (22-29) mmol/L Anion Gap 10 L (12-20) BUN 12 (9-16) mg/dL Creatinine 0.63 (0.5-1.4) mg/dL Estim Creat Clear Calc 150.8 Estimated GFR > 60 Random Glucose 94 (60-115) mg/dL Lactic Acid (0.5-2.0) mmol/L Calcium 9.1 (8.4-10.2) mg/dL Total Bilirubin 0.4 (0.0-1.0) mg/dL AST 18 (5-37) U/L ALT 41 H (0-40) U/L Alkaline Phosphatase 79 (39-117) U/L Troponin I High Sens (<3.5-35.0) ng/L B-Natriuretic Peptide (<100) pg/mL Total Protein 7.2 (6.5-8.0) g/dL Albumin 3.8 (3.5-5.0) g/dL 07/12/21 07/12/21 Range/Units 00:50 00:50 WBC (4.8-10.8) X10*3/uL RBC (4.60-5.80) X10*6/uL Hgb (14.0-18.0) g/dl Hct (42.0-52.0) % MCV (80.0-98.0) fL MCH (27.0-33.0) pg MCHC (31.0-36.0) g/dl RDW (11.0-16.0) % Plt Count (160-400) X10*3/uL MPV (9.4-12.4) fL Immature Gran % (Auto) (0.0-0.4) % Neut % (Auto) (45-73) % Lymph % (Auto) (20-40) % [place] % (Auto) (2-11) % Eos % (Auto) (0-4) % Baso % (Auto) (0-2) % Lymph # (Auto) (1.2-4.9) X10*3/uL [place] # (Auto) (0.1-1.2) X10*3/uL Eos # (Auto) (0.0-0.4) X10*3/uL Baso # (Auto) (0.0-0.2) X10*3/uL Abs Immat Gran (auto) (0.00-0.03) X10*3/uL Absolute Neuts (auto) (2.0-8.3) x10*3/uL Absolute Nucleated RBC (0.0-0.012) X10*3/uL Nucleated RBC % (auto) (0.0-0.2) /100WBC D-Dimer High Sensitivty NG/ML Sodium (135-145) mmol/L Potassium (3.3-5.1) mmol/L Chloride (96-108) mmol/L Carbon Dioxide (22-29) mmol/L Anion Gap (12-20) BUN (9-16) mg/dL Creatinine (0.5-1.4) mg/dL Estim Creat Clear Calc Estimated GFR Random Glucose (60-115) mg/dL Lactic Acid 0.8 (0.5-2.0) mmol/L Calcium (8.4-10.2) mg/dL Total Bilirubin (0.0-1.0) mg/dL AST (5-37) U/L ALT (0-40) U/L Alkaline Phosphatase (39-117) U/L Troponin I High Sens < 3.5 (<3.5-35.0) ng/L B-Natriuretic Peptide < 10 (<100) pg/mL Total Protein (6.5-8.0) g/dL Albumin (3.5-5.0) g/dL Critical Care Time Critical Care Time Critical Care Time: No Discharge Plan Discharge Clinical Impression: Post surgical complication, Cellulitis, Mild shortness of breath, Anxiety, Anemia Patient Disposition: Home, Self-Care Additional Instructions: Take your medications as prescribed. If you were prescribed antibiotics today, it is important that you take your medication to their entirety, do not skip any doses, do not finish them early. Is crucial that you follow-up with your primary care provider as soon as possible. You should also follow-up with your surgeon as soon as possible. Return to the emergency department with new or worsening symptoms. Such as fevers, chills, chest pain, shortness of breath, nausea, vomiting, dizziness, headache, vision changes, lethargy In case of emergency call 911 Your laboratory studies showed that you are anemic. Your cardiac enzymes and cardiac workup was negative. No signs of blood clot. Your imaging showed changes consistent with postoperative changes. I am treating you for a skin infection or cellulitis with antibiotics. Ferrous sulfate is a medication that will help with anemia. Please take this in the morning, you should take it with orange juice to help with absorption. This can make you slightly constipated this is normal. I only gave you a short supply I would like you to follow-up with her PCP and discuss further treatment of this anemia. You will likely require repeat lab work. If at any point you start bleeding from the rectum, having severe pain, worsening chest pain or shortness of breath, fevers, chills, leg swelling, nausea, vomiting or any new symptom you should return immediately. Apply warm compresses to the area. Prescriptions: New doxycycline hyclate 100 mg capsule 100 mg PO BID 7 Days Qty: 14 0RF cephalexin 500 mg tablet 500 mg PO Q6H 7 Days Qty: 28 0RF ferrous sulfate 325 mg (65 mg iron) tablet,delayed release (DR/EC) 325 mg PO DAILY Qty: 10 0RF Referrals: Seng Alvarez MD [Primary Care Provider] - 2 days Stand Alone Forms: Work/School Release
--- NOTE | 2021-07-12 00:56 | ECG_ITS ---
Test Reason : SHORTNESS OF BREATH Blood Pressure : / mmHG Vent. Rate : 083 BPM Atrial Rate : 083 BPM P-R Int : 176 ms QRS Dur : 078 ms QT Int : 340 ms P-R-T Axes : 061 063 043 degrees QTc Int : 399 ms Normal sinus rhythm Normal ECG No previous ECGs available Referred By: Augie Cordon Electronically Signed By:ARA WALL
[2021-07-12 01:08] LABS: Lactic Acid 0.8 mmol/L (0.5-2.0)
[2021-07-12 01:09] LABS: D Dimer High Sensitivity 760 NG/ML
[2021-07-12 01:18] LABS: B Type Natriuretic Peptide < 10 pg/mL (<100)
[2021-07-12] MEDS: iohexoL 350 MG/ML 100 ML INFUS..BTL 85 ML IV (01:31)
[2021-07-12 02:06] VITALS: PULSE 88; O2SAT 100
[2021-07-12] MEDS: Ketorolac Tromethamine 15 MG/ML VIAL 30 MG IVPUSH (02:59)
[2021-07-22 15:13] LABS: Hematocrit 27.8 % (37.0-47.0); Hemoglobin 8.8 g/dl (12.0-16.0); Mean Corpuscular HGB Conc 31.7 g/dl (31.0-35.0); Red Blood Count 3.27 X10*6/uL (4.20-5.50)
[2021-07-22 15:14] LABS: Mean Platelet Volume 9.2 fL (9.4-12.3)
[2021-07-22 15:16] LABS: Aspartate Amino Transferase 18 U/L (5-31)
[2021-07-22 15:17] LABS: Alanine Aminotransferase 41 U/L (0-31)
[2021-07-22 15:19] LABS: Troponin-I High Sensitivity < 3.5 ng/L (<3.5-17.0)
== END 2021-07-12 03:23 | disposition home or self-care (01) ==
PROVIDERS: Physician Assistant; Emergency Provider Student in an Organized Health Care Education/Training Program; PCP Internal Medicine
DX: N61.0 Mastitis without abscess (principal); T81.89XA Other complications of procedures, not elsewhere classified, initial encounter; Y83.4 Other reconstructive surgery as the cause of abnormal reaction of the patient, or of later complication, without mention of misadventure at the time of the procedure; Y92.9 Unspecified place or not applicable; R06.02 Shortness of breath; F41.9 Anxiety disorder, unspecified; D64.9 Anemia, unspecified
CPT/HCPCS: 36415; 71275; 74177; 80053; 83605; 83880; 84484; 85025; 85379; 87040; 93005; 96374; 99284; 99285; J1885; Q9967

== ENCOUNTER 2022-11-09 08:47 | Emergency (ER) | payer OTHER, SELFPAY ==
[2022-11-09 08:57] VITALS: BP 106/59; PULSE 68; RESP 17; TEMP 36.1; O2SAT 100; BMI 27.0
--- NOTE | 2022-11-09 09:32 | ED_ITS ---
HPI - General Adult General Chief complaint: General Medical Stated complaint: nausea vomiting ear pain Time Seen by Provider: 11/09/22 09:19 Source: patient Mode of arrival: ambulatory Limitations: no limitations History of Present Illness HPI narrative: 27 y/o F who is at 7 weeks gestation presents with bilateral earlobe pain, subjective fevers and chills for the past two days. She reports that she has had the earrings in for years but the area surrounding the earrings became inflamed and painful. She also reports N/V and 7/10 epigastric pain that seems to radiate diffusely over the abdomen. She has vomited 3x today and a few times yesterday. She reports scant amounts of bright red blood in vomit this morning. She was seen by urgent care yesterday who instructed her to remove the earrings, however her symptoms have not improved. She has not tried anything else for her discomfort. She denies any vaginal bleeding and cramping. She has not yet had care for this . Onset (ago): day(s) (2) Location: head (Earlobes, epigastric ) and abdomen Severity: moderate Severity scale (1-10): 7 Quality: constant Pain Consistency: constant Exacerbating factors: none Associated symptoms: fever/chills Treatments prior to arrival: none Related Data Home Medications Medication Instructions Recorded Confirmed ferrous gluconate 324 mg (38 mg 1 tab PO QAM 10/16/20 10/16/20 iron) tablet Previous Rx's Medication Instructions Recorded cephalexin 500 mg tablet 500 mg PO Q6H 7 days #28 tabs 07/12/21 doxycycline hyclate 100 mg capsule 100 mg PO BID 7 days #14 caps 07/12/21 ferrous sulfate 325 mg (65 mg 325 mg PO DAILY #10 tabs 07/12/21 iron) tablet,delayed release cephalexin 500 mg capsule 500 mg PO Q6H 5 days #20 caps 11/09/22 mupirocin 2 % topical ointment 1 appl topical TID #22 grams 11/09/22 Allergies Allergy/AdvReac Type Severity Reaction Status Date / Time No Known Allergies Allergy Verified 07/14/21 07:29 Review of Systems Review of Systems: Yes all other systems are reviewed and are negative [facility] Past Medical History Medical History (Updated 11/09/22 @ 10:49 by LEANNE Strauss) COVID-19 Social History Social History (System 07/14/21 @ 07:29 by Mona Banda) Alcohol intake: never Patient Tobacco Use Status: Never used Tobacco Advance Directives: No Advance Directives Information Provided: No Physical Exam ED Vital Signs: Vital Signs - 24 hr 11/09/22 08:57 11/09/22 11:24 Temperature 96.9 F 98.0 F Pulse Rate 68 58 Respiratory Rate 17 16 Blood Pressure 106/59 L 102/47 L Pulse Oximetry 100 100 Oxygen Delivery Method Room Air Room Air BMI result Body Mass Index 27.0 Appearance: Alert. Oriented X3. No acute distress. Head: normocephalic, atraumatic. Eyes: Pupils equal, round and reactive to light. ENT: Pharynx normal. No tonsillar swelling or exudate. TMs unremarkable. Bilateral lower earlobe erythema, swelling and crusting. Neck: Normal inspection. Neck supple. Tender R cervical lympadenopathy CVS: Normal heart rate and rhythm. Pulses normal. Respiratory: No respiratory distress. Breath sounds normal. Abdomen: Soft and moderately tender diffusely without any rebound or guarding. +BS x4 Skin: Skin warm and dry. Normal skin color. Normal skin turgor. No rashes. Extremities: No lower extremity edema. No joint swelling. Neuro/psych: Oriented X 3. No motor deficit. No sensory deficit. CN II-XII intact. Normal speech and cognition. Medications Administered Discontinued Medications Generic Name Dose Route Start Last Admin Trade Name Freq PRN Reason Stop Dose Admin Acetaminophen 650 mg 11/09/22 09:33 11/09/22 09:41 Acetaminophen 325 Mg Tablet PO 11/09/22 09:34 650 mg ONCE ONE Administration Omeprazole 40 mg 11/09/22 09:33 11/09/22 09:41 Omeprazole 40 Mg Capsule. PO 11/09/22 09:34 40 mg ONCE ONE Administration Ondansetron HCl 4 mg 11/09/22 09:33 11/09/22 09:41 Ondansetron Odt 4 Mg Tab.Lindadis TRANSLINGU 11/09/22 09:34 4 mg ONCE ONE Administration Medical Decision Making Medical Decision Making MDM Narrative: 27 y/o F who is at 7 weeks gestation presents with bilateral earlobe pain, subjective fevers and chills for the past two days. Exam revealed bilateral erythematous, swollen and crusted earlobes where her earrings were. TMs and ear canals were unremarkable and her hearing is unaffected, making otitis media or externa unlikely. Patient reports subjective fevers and chills and diffuse epigastric pain that began around the same time. Patient denies any lower abd ominal cramping, pain or vaginal bleeding which is reassuring, making ectopic unlikely. Epigastric pain is diffuse, exam was reassuring with no rebound or guarding. Lab workup including HCG quant, was ordered. Tylenol, Omeprazole and Zofran were ordered. lab workup unremarkable. feeling better after meds stable for d/c home with PO and topical abx for her ears. she has Ob appointment in a few days Differential Diagnosis Differential Diagnoses: The differential diagnosis associated with the presentation includes ear pain most likely due to localized cellulitis vs abscess, possible allergic dermatitis, less likely otitis externa or mastoiditis abd pain/N/V/D most likely due to 1st trimester symptoms, less likely hyperemesis gravidarum, pancreatitis, or choleystitis Lab Data MDM Lab Attestation statement: I reviewed the patient's lab results. chronic leukopenia, no longer anemic 11/09/22 09:39 11/09/22 09:39 Labs: Lab Results 11/09/22 11/09/22 11/09/22 Range/Units 09:39 09:39 10:25 WBC 3.4 L (4.8-10.8) X10*3/uL RBC 4.60 D (4.20-5.50) X10*6/uL Hgb 13.3 D (12.0-16.0) g/dl Hct 38.2 D (37.0-47.0) % MCV 83.0 (80.0-98.0) fL MCH 28.9 (27.0-33.0) pg MCHC 34.8 (31.0-35.0) g/dl RDW 12.5 (11.0-16.0) % Plt Count 254 D (160-400) X10*3/uL MPV 9.9 (9.4-12.3) fL Immature Gran % (Auto) 0.3 (0.0-0.4) % Neut % (Auto) 64.0 (45-73) % Lymph % (Auto) 27.8 (20-40) % [place] % (Auto) 7.6 (2-11) % Eos % (Auto) 0.3 (0-4) % Baso % (Auto) 0.0 (0-2) % Lymph # (Auto) 1.0 L (1.2-4.9) X10*3/uL [place] # (Auto) 0.3 (0.1-1.2) X10*3/uL Eos # (Auto) 0.0 (0.0-0.4) X10*3/uL Baso # (Auto) 0.0 (0.0-0.2) X10*3/uL Abs Immat Gran (auto) 0.01 (0.00-0.03) X10*3/uL Absolute Neuts (auto) 2.2 (2.0-8.3) x10*3/uL Absolute Nucleated RBC 0.000 (0.0-0.012) X10*3/uL Nucleated RBC % (auto) 0.0 (0.0-0.2) /100WBC Sodium 138 (135-145) mmol/L Potassium 3.8 (3.3-5.1) mmol/L Chloride 106 (96-108) mmol/L Carbon Dioxide 21 L (22-29) mmol/L Anion Gap 15 (12-20) BUN 6 L (9-16) mg/dL Creatinine 0.57 (0.5-1.4) mg/dL Estim Creat Clear Calc 131.8 Estimated GFR > 60 Random Glucose 80 (60-115) mg/dL Calcium 9.1 (8.4-10.2) mg/dL Total Bilirubin 1.3 H (0.0-1.0) mg/dL AST 21 (5-31) U/L ALT 36 H (0-31) U/L Alkaline Phosphatase 84 (39-117) U/L Total Protein 8.1 H (6.5-8.0) g/dL Albumin 4.2 (3.5-5.0) g/dL Beta HCG, Quant [id number] mIU/mL Tests considered The following testing was considered but not selected: considered an O/B U/S however no vaginal bleeding or pelvic cramping Prescription Management I considered prescription management with: Antibiotic and Other (antiemetic) Chronic Conditions Patient?s care impacted by: Other () Critical Care Time Critical Care Time Critical Care Time: No Discharge Plan Discharge Clinical Impression: Cellulitis, Patient Disposition: Home, Self-Care Instructions: (ED), Cellulitis (DC) Additional Instructions: your lab work today was reassuring use the topical antibiotic ointment as directed Take the prescribed antibiotics as directed, complete the entire course and do not miss any doses use warm compresses to the ear lobes several times per day Recommend over the counter Unisom - take 1 tablet along with vitamin B6 every night right before bed Try eating a cracker or something small immediately in the morning Combination of lemonade and potato chips has also been proven to be a combination to help nausea in Follow up with your workplace relations adviser If you develop new or worsening symptoms call 911 or come back to the ER for fu rther evaluation. Prescriptions: New mupirocin 2 % ointment 1 appl topical TID Qty: 22 0RF cephalexin 500 mg capsule 500 mg PO Q6H 5 Days Qty: 20 0RF No Action ferrous gluconate 324 mg (38 mg iron) tablet 1 tab PO QAM doxycycline hyclate 100 mg capsule 100 mg PO BID 7 Days Qty: 14 0RF cephalexin 500 mg tablet 500 mg PO Q6H 7 Days Qty: 28 0RF ferrous sulfate 325 mg (65 mg iron) tablet,delayed release (DR/EC) 325 mg PO DAILY Qty: 10 0RF Referrals: Seng Alvarez MD [Primary Care Provider] - Interventions: ED Discharge Assessment Last Done: 11/09/22 11:28
[2022-11-09] MEDS: Acetaminophen 325 MG TABLET 650 MG PO (09:41)
[2022-11-09] MEDS: Ondansetron ODT 4 MG TAB.RAPDIS TRANSLINGU (09:41)
[2022-11-09] MEDS: Omeprazole 40 MG CAPSULE.DR PO (09:41)
[2022-11-09 09:49] LABS: MANUAL DIFF FLAG NO
[2022-11-09 09:53] LABS: Eosinophils Percent Auto 0.3 % (0-4); Hematocrit 38.2 % (37.0-47.0); Hemoglobin 13.3 g/dl (12.0-16.0); Imm Gran Abs Auto 0.01 X10*3/uL (0.00-0.03); Imm Gran Pct Auto 0.3 % (0.0-0.4); Lymphocytes Percent Auto 27.8 % (20-40); Mean Corpuscular HGB Conc 34.8 g/dl (31.0-35.0); Mean Corpuscular Hemoglobin 28.9 pg (27.0-33.0); Mean Platelet Volume 9.9 fL (9.4-12.3); Monocytes Absolute Auto 0.3 X10*3/uL (0.1-1.2); Monocytes Percent Auto 7.6 % (2-11); Neutrophils Absolute Auto 2.2 x10*3/uL (2.0-8.3); Platelet Count 254 X10*3/uL (160-400); Red Cell Distribution Width 12.5 % (11.0-16.0); White Blood Count 3.4 X10*3/uL (4.8-10.8)
[2022-11-09 10:47] LABS: Alanine Aminotransferase 36 U/L (0-31); Albumin Level 4.2 g/dL (3.5-5.0); Alkaline Phosphatase 84 U/L (39-117); Anion Gap 15 (12-20); Aspartate Amino Transferase 21 U/L (5-31); Bilirubin Total 1.3 mg/dL (0.0-1.0); Blood Urea Nitrogen 6 mg/dL (9-16); Calcium 9.1 mg/dL (8.4-10.2); Carbon Dioxide 21 mmol/L (22-29); Chloride 106 mmol/L (96-108); Creatinine Clr Calc Pharmacy 131.8; Estimated Glomerular Filt Rate > 60; Glucose Random 80 mg/dL (60-115); Potassium 3.8 mmol/L (3.3-5.1); Sodium 138 mmol/L (135-145); Total Protein 8.1 g/dL (6.5-8.0)
[2022-11-09 11:24] VITALS: BP 102/47; PULSE 58; RESP 16; TEMP 36.7; O2SAT 100
== END 2022-11-09 11:29 | disposition home or self-care (01) ==
PROVIDERS: Emergency Provider Emergency Medicine; PCP Internal Medicine
DX: O26.891 Other specified pregnancy related conditions, first trimester (principal); H60.13 Cellulitis of external ear, bilateral; R11.2 Nausea with vomiting, unspecified; Z3A.01 Less than 8 weeks gestation of pregnancy
CPT/HCPCS: 36415; 80053; 84702; 85025; 99283

== ENCOUNTER 2023-05-31 09:47 | Emergency (ER) | payer OTHER, SELFPAY ==
[2023-05-31 10:01] VITALS: BP 119/69; PULSE 114; RESP 16; TEMP 36.6; O2SAT 98; BMI 29.3
[2023-05-31 10:43] LABS: MANUAL DIFF FLAG NO
[2023-05-31 10:50] LABS: Basophils Percent Auto 0.2 % (0-2); Eosinophils Percent Auto 0.1 % (0-4); Hematocrit 26.8 % (37.0-47.0); Hemoglobin 9.3 g/dl (12.0-16.0); Imm Gran Abs Auto 0.06 X10*3/uL (0.00-0.03); Imm Gran Pct Auto 0.7 % (0.0-0.4); Lymphocytes Absolute Auto 0.7 X10*3/uL (1.2-4.9); Lymphocytes Percent Auto 9.2 % (20-40); Mean Corpuscular HGB Conc 34.7 g/dl (31.0-35.0); Mean Corpuscular Hemoglobin 28.5 pg (27.0-33.0); Mean Corpuscular Volume 82.2 fL (80.0-98.0); Mean Platelet Volume 9.9 fL (9.4-12.3); Monocytes Absolute Auto 0.4 X10*3/uL (0.1-1.2); Monocytes Percent Auto 5.3 % (2-11); Neutrophils Absolute Auto 6.8 x10*3/uL (2.0-8.3); Neutrophils Percent Auto 84.5 % (45-73); Platelet Count 224 X10*3/uL (160-400); Red Blood Count 3.26 X10*6/uL (4.20-5.50); Red Cell Distribution Width 13.8 % (11.0-16.0); White Blood Count 8.1 X10*3/uL (4.8-10.8)
[2023-05-31 10:51] LABS: Prothrombin Time 12.4 SEC (11.1-13.3)
[2023-05-31 10:58] LABS: Alanine Aminotransferase 10 U/L (0-31); Albumin Level 3.2 g/dL (3.5-5.0); Alkaline Phosphatase 184 U/L (39-117); Anion Gap 17 (12-20); Aspartate Amino Transferase 15 U/L (5-31); Bilirubin Direct 0.1 mg/dL (0.0-0.5); Bilirubin Total 0.5 mg/dL (0.0-1.0); Blood Urea Nitrogen 5 mg/dL (9-16); Calcium 8.7 mg/dL (8.4-10.2); Carbon Dioxide 16 mmol/L (22-29); Chloride 102 mmol/L (96-108); Estimated Glomerular Filt Rate > 60; Glucose Random 98 mg/dL (60-115); Potassium 3.6 mmol/L (3.3-5.1); Sodium 131 mmol/L (135-145); Total Protein 7.5 g/dL (6.5-8.0)
[2023-05-31 11:27] LABS: Influenza A PCR NEGATIVE (Negative); Influenza B PCR NEGATIVE (Negative); Resp Syncy Virus RNA Qual PCR NEGATIVE (Negative); SARS COV2 PCR INHOUSE POSITIVE (Negative)
--- NOTE | 2023-05-31 15:44 | ED.CHESTPAIN ---
HPI - Chest Pain General Chief Complaint: Chest Pain Stated Complaint: COVID+/SOB, headache- Time Seen by Provider: 05/31/23 15:43 History of Present Illness HPI narrative: 27 y/o F patient; without significant PMH; presents from home with two days of central chest heaviness, shortness of breath, diffuse body aches, and nasal congestion. She reports one day of decreased PO intake. She is with NARDA 06/15/2023. The patient has known sick contact in her son. She otherwise denies: vomiting, diarrhea, abdominal pain. She denies vaginal bleeding. On time of evaluation patient endorsing abdominal contractions that began in the emergency department. Denying vaginal bleeding or release of fluids. Patient is followed by OBGYNatalia Hogan. Related Data Home Medications Medication Instructions Recorded Confirmed ferrous gluconate 324 mg (38 mg 1 tab PO QAM 10/16/20 10/16/20 iron) tablet Previous Rx's Medication Instructions Recorded cephalexin 500 mg tablet 500 mg PO Q6H 7 days #28 tabs 07/12/21 doxycycline hyclate 100 mg capsule 100 mg PO BID 7 days #14 caps 07/12/21 ferrous sulfate 325 mg (65 mg 325 mg PO DAILY #10 tabs 07/12/21 iron) tablet,delayed release cephalexin 500 mg capsule 500 mg PO Q6H 5 days #20 caps 11/09/22 mupirocin 2 % topical ointment 1 appl topical TID #22 grams 11/09/22 cephalexin 500 mg capsule 500 mg PO Q8H 7 days #21 caps 05/31/23 Allergies Allergy/AdvReac Type Severity Reaction Status Date / Time No Known Allergies Allergy Verified 07/14/21 07:29 Review of Systems Review of Systems: Yes all other systems are reviewed and are negative [facility] Past Medical History Attestation statement: The following information was validated with the patient. Source: unable to obtain Medical History COVID-19 Social History Social History Alcohol intake: never Patient Tobacco Use Status: Never used Tobacco Smoked in Last 30 Days: No Use of substances other than those prescribed or required for medical reasons: No Advance Directives: No Advance Directives Information Provided: No Physical Exam Vital Signs: Vital Signs: Last Vital Signs Temp 97.8 F 05/31/23 18:03 Pulse 100 05/31/23 18:03 Resp 16 05/31/23 18:03 BP 114/70 05/31/23 18:03 Pulse Ox 99 05/31/23 18:03 O2 Del Method Room Air 05/31/23 18:03 BMI result Body Mass Index 29.3 Patient is afebrile, tachycardic, normotensive. Const: General: cooperative HEENT: Head: Yes atraumatic Eyes: General: appearance normal, both eyes and all related structures Pupils: Equal, round and reactive pupils present EOM: EOMs intact bilaterally Neck: Neck: Yes normal visual inspection, Yes full ROM, Yes supple and No tender Chest: Chest palpation & inspection: normal inspection of the chest and normal palpation of entire chest wall Resp: Effort & Inspection: normal respiratory effort, able to speak in complete sentences, Actively coughing and no respiratory distress Auscultation: clear to auscultation bilaterally, no rales, no rhonchi and no wheezes Cardio: Rate: tachycardic Rhythm: regular rhythm Peripheral pulses: Peripheral pulses 2+ throughout GI: Other: Gravid abdomen Palpation (GI): nontender, no guarding and not rigid Auscultation: normal bowel sounds Neuro: Cranial nerves: Yes Equal, round and reactive pupils present Course Course Course Narrative: Reviewed triage work up. Patient noted to be COVID positive. Reevaluation(s) Reevaluation #1: Laboratory studies without leukocytosis. Hgb 9.3. Sodium 131. Bicarb 16. COVID +. Given low bicarb with reported poor PO intake, will provide 2L IVF. Patient re-evaluated after first liter, reports continued contractions every 3 - 5min. UA with evidence of asymptomatic cystitis, will provide one dose Cefritraxone given patient's active contractions and plan for rx Keflex. Discussed with patient's covering OBGYN at the [facility] ([facility], [place]) who recommend that as patient has been in this ED for 8+ hours without further progression of labor she is a candidate for discharge to home with follow up in the [facility] if her contractions should continue. heart rate reassuring at 155BPM. No release of amniotic fluid noted. Cervical exam noted 4cm dilated with softening. Concern for low position of head on bedside US. Re-discussed with covering physician at [facility] - agreeable for transfer for OBGYN evaluation. Patient in agreement. Plan: Discharge to home with OBGYN and PCP follow up Return precautions given Rx 7 days TID Keflex sent to pharmacy Medications Administered Discontinued Medications Generic Name Dose Route Start Last Admin Trade Name Freq PRN Reason Stop Dose Admin Sodium Chloride 1,000 mls @ 999 mls/hr 05/31/23 16:00 05/31/23 18:44 Ns IV 05/31/23 18:00 Infused .Q1H1M SASCHA Infusion Ceftriaxone Sodium 1 gm/ 50 mls @ 100 mls/hr 05/31/23 17:39 05/31/23 19:23 Sodium Chloride IV 05/31/23 18:08 Infused ONCE ONE Infusion Medical Decision Making Lab Data 05/31/23 10:36 05/31/23 10:36 Labs: Lab Results 05/31/23 05/31/23 Range/Units 10:36 16:31 WBC 8.1 (4.8-10.8) X10*3/uL RBC 3.26 L D (4.20-5.50) X10*6/uL Hgb 9.3 L D (12.0-16.0) g/dl Hct 26.8 L D (37.0-47.0) % MCV 82.2 (80.0-98.0) fL MCH 28.5 (27.0-33.0) pg MCHC 34.7 (31.0-35.0) g/dl RDW 13.8 (11.0-16.0) % Plt Count 224 (160-400) X10*3/uL MPV 9.9 (9.4-12.3) fL Immature Gran % (Auto) 0.7 H (0.0-0.4) % Neut % (Auto) 84.5 H (45-73) % Lymph % (Auto) 9.2 L (20-40) % [place] % (Auto) 5.3 (2-11) % Eos % (Auto) 0.1 (0-4) % Baso % (Auto) 0.2 (0-2) % Lymph # (Auto) 0.7 L (1.2-4.9) X10*3/uL [place] # (Auto) 0.4 (0.1-1.2) X10*3/uL Eos # (Auto) 0.0 (0.0-0.4) X10*3/uL Baso # (Auto) 0.0 (0.0-0.2) X10*3/uL Abs Immat Gran (auto) 0.06 H (0.00-0.03) X10*3/uL Absolute Neuts (auto) 6.8 (2.0-8.3) x10*3/uL Absolute Nucleated RBC 0.000 (0.0-0.012) X10*3/uL Nucleated RBC % (auto) 0.0 (0.0-0.2) /100WBC PT 12.4 (11.1-13.3) SEC INR 1.0 (0.9-1.1) Sodium 131 L (135-145) mmol/L Potassium 3.6 (3.3-5.1) mmol/L Chloride 102 (96-108) mmol/L Carbon Dioxide 16 L (22-29) mmol/L Anion Gap 17 (12-20) BUN 5 L (9-16) mg/dL Creatinine 0.61 (0.5-1.4) mg/dL Estim Creat Clear Calc 128.0 Estimated GFR > 60 Random Glucose 98 (60-115) mg/dL Calcium 8.7 (8.4-10.2) mg/dL Total Bilirubin 0.5 (0.0-1.0) mg/dL Direct Bilirubin 0.1 (0.0-0.5) mg/dL AST 15 (5-31) U/L ALT 10 (0-31) U/L Alkaline Phosphatase 184 H (39-117) U/L Total Protein 7.5 (6.5-8.0) g/dL Albumin 3.2 L (3.5-5.0) g/dL Urine Color Yellow Urine Appearance Cloudy Urine pH 6.5 (5.0-9.0) Ur Specific [place] 1.010 (1.005-1.025) Urine Protein Negative (Neg-Trace) mg/dL Urine Glucose (UA) Negative (Negative) mg/dL Urine Ketones Negative (Negative) mg/dL Urine Blood Negative (Negative) Urine Nitrite Negative (Negative) Ur Leukocyte Esterase Large (3+) H (Negative) Urine RBC 0-2 (0-2) /HPF Urine WBC 21-50 H (0-5) /HPF Ur Squamous Epith Cells 11-20 (0-2) /HPF Urine Bacteria 4+ (None Seen) Hyaline Casts 0-2 (0-2) /LPF Influenza Type A (PCR) NEGATIVE (Negative) Influenza Type B (PCR) NEGATIVE (Negative) RSV RNA Qual (PCR) NEGATIVE (Negative) SARS-CoV-2 RNA (RT-PCR) POSITIVE A (Negative) Discharge Plan Discharge Clinical Impression: COVID-19, , Cystitis Patient Disposition: Xfer Other Transfer Details: [facility] Instructions: Urinary Tract Infection in Women (DC) Additional Instructions: As we discussed, you were seen today for flu like symptoms and found to be positive for COVID. Your urine was also tested which found a urine infection. We spoke to your covering OBGYN about your contractions. They are in agreement to evaluate you at the [facility]. Return to the emergency department for: Difficulty breathing Chest pain Abdominal pain Passing out Prescriptions: New cephalexin 500 mg capsule 500 mg PO Q8H 7 Days Qty: 21 0RF No Action ferrous gluconate 324 mg (38 mg iron) tablet 1 tab PO QAM doxycycline hyclate 100 mg capsule 100 mg PO BID 7 Days Qty: 14 0RF cephalexin 500 mg tablet 500 mg PO Q6H 7 Days Qty: 28 0RF ferrous sulfate 325 mg (65 mg iron) tablet,delayed release (DR/EC) 325 mg PO DAILY Qty: 10 0RF mupirocin 2 % ointment 1 appl topical TID Qty: 22 0RF cephalexin 500 mg capsule 500 mg PO Q6H 5 Days Qty: 20 0RF Referrals: Seng Alvarez MD [Primary Care Provider] - Interventions: ED Discharge Assessment Last Done: 05/31/23 19:24 Discharge Date/Time: 05/31/23 19:26
--- NOTE | 2023-05-31 15:56 | PC.NURSE ---
heart rate is 155
[2023-05-31 16:33] VITALS: BP 116/76; PULSE 105; RESP 25; O2SAT 98
[2023-05-31 16:44] LABS: Appearance Urine Cloudy; Color Urine Yellow; Glucose Urine UA Negative (Negative); Leukocyte Esterase Urine Large (3+) (Negative); Nitrite Urine Negative (Negative); PH 6.5 (5.0-9.0); UMIC TRIGGER UACC YES; Urine Blood Negative (Negative); Urine Ketones Negative (Negative); Urine Protein Negative (Neg-Trace)
[2023-05-31 16:48] LABS: Bacteria Urine 4+ (None Seen); Hyaline Casts Urine 0-2 /LPF (0-2); RBC Urine 0-2 /HPF (0-2); UACC Culture Trigger YES; WBC Urine 21-50 /HPF (0-5)
[2023-05-31] MEDS: 0.9 % Sodium Chloride 1,000 ML 999 ML IV ×2 (17:03→17:31)
[2023-05-31 18:03] VITALS: BP 114/70; PULSE 100; RESP 16; TEMP 36.6; O2SAT 99
--- NOTE | 2023-05-31 18:45 | PC.NURSE ---
patient did receive 2 liters of NS without any complications
[2023-05-31] MEDS: cefTRIAXone sodium 1 GM in 0.9 % Sodium Chloride 50 ML IV (19:01)
--- NOTE | 2023-05-31 19:23 | PC.NURSE ---
pt d/c with chuy ems 20g IV R. AC. pt reports some pain upon d/c. nad ambulatory with steady gait onto stretcher.
== END 2023-05-31 19:26 | disposition other institution (70) ==
PROVIDERS: Emergency Provider Emergency Medicine; PCP Internal Medicine
DX: U07.1 COVID-19 (principal); N30.90 Cystitis, unspecified without hematuria; R07.89 Other chest pain; R06.02 Shortness of breath; R51.9 Headache, unspecified; Z79.899 Other long term (current) drug therapy
CPT/HCPCS: 0241U; 80048; 80076; 81001; 85025; 85610; 87086; 96361; 96365; 99284; J0696

== ENCOUNTER 2023-09-27 11:45 | Outpatient (REF) | payer OTHER, SELFPAY ==
[2023-09-27 12:06] LABS: MANUAL DIFF FLAG NO
[2023-09-27 12:23] LABS: Basophils Percent Auto 0.5 % (0-2); Eosinophils Percent Auto 0.5 % (0-4); Hematocrit 36.6 % (37.0-47.0); Hemoglobin 12.3 g/dl (12.0-16.0); Lymphocytes Absolute Auto 1.5 X10*3/uL (1.2-4.9); Lymphocytes Percent Auto 39.3 % (20-40); Mean Corpuscular HGB Conc 33.6 g/dl (31.0-35.0); Mean Corpuscular Hemoglobin 27.1 pg (27.0-33.0); Mean Corpuscular Volume 80.6 fL (80.0-98.0); Mean Platelet Volume 9.9 fL (9.4-12.3); Monocytes Absolute Auto 0.3 X10*3/uL (0.1-1.2); Monocytes Percent Auto 7.6 % (2-11); Neutrophils Percent Auto 52.1 % (45-73); Platelet Count 277 X10*3/uL (160-400); Red Blood Count 4.54 X10*6/uL (4.20-5.50); Red Cell Distribution Width 14.2 % (11.0-16.0); White Blood Count 3.8 X10*3/uL (4.8-10.8)
[2023-09-27 13:01] LABS: Anion Gap 11 (12-20); Blood Urea Nitrogen 10 mg/dL (9-16); Calcium 9.4 mg/dL (8.4-10.2); Carbon Dioxide 25 mmol/L (22-29); Chloride 108 mmol/L (96-108); Estimated Glomerular Filt Rate > 60; Glucose Random 83 mg/dL (60-115); Iron 49 mcg/dL (30-160); Percent Iron Saturation 16 % (15-50); Potassium 3.9 mmol/L (3.3-5.1); Sodium 140 mmol/L (135-145); Total Iron Binding Capacity 302 mcg/dL (228-428); Unsaturated Iron Binding 253 ug/dL
== END 2023-09-27 11:46 | disposition home or self-care (01) ==
LOC: HO.LAB 11:45
PROVIDERS: PCP Internal Medicine; Visit Provider Internal Medicine
DX: D64.9 Anemia, unspecified (principal); R21 Rash and other nonspecific skin eruption
CPT/HCPCS: 36415; 80048; 83540; 85025

== ENCOUNTER 2023-11-11 15:22 | Outpatient (REF) | payer OTHER, SELFPAY ==
[2023-11-12 04:08] LABS: HBS Num1 14.53 mIU/mL (0-7.99); ~Hepatitis B Surface Antibody REACTIVE (Nonreactive)
== END 2023-11-11 15:23 | disposition home or self-care (01) ==
LOC: HO.LAB 15:22
PROVIDERS: PCP Internal Medicine; Visit Provider Internal Medicine
DX: Z02.1 Encounter for pre-employment examination (principal)
CPT/HCPCS: 36415; 86706; 86765

== ENCOUNTER 2023-11-23 15:12 | Outpatient (REF) | payer OTHER, SELFPAY ==
[2023-11-26 02:13] LABS: TS Negative Control Passed; TS Panel A 0; TS Panel B 1; TS Positive Control Passed; TSpotTB Negative (Negative)
== END 2023-11-23 15:13 | disposition home or self-care (01) ==
LOC: HO.LAB 15:12
PROVIDERS: PCP Internal Medicine; Visit Provider Internal Medicine
DX: Z02.0 Encounter for examination for admission to educational institution (principal)
CPT/HCPCS: 36415; 86481

== ENCOUNTER 2024-01-20 11:08 | Outpatient (REF) | payer OTHER, SELFPAY ==
[2024-01-20 12:13] LABS: Basophils Percent Auto 0.3 % (0-2); Eosinophils Absolute Auto 0.1 X10*3/uL (0.0-0.4); Eosinophils Percent Auto 1.3 % (0-4); Hematocrit 36.9 % (37.0-47.0); Hemoglobin 12.9 g/dl (12.0-16.0); Imm Gran Abs Auto 0.01 X10*3/uL (0.00-0.03); Imm Gran Pct Auto 0.3 % (0.0-0.4); Lymphocytes Absolute Auto 1.3 X10*3/uL (1.2-4.9); Lymphocytes Percent Auto 35.6 % (20-40); MANUAL DIFF FLAG SCAN; Mean Corpuscular Hemoglobin 29.4 pg (27.0-33.0); Mean Corpuscular Volume 84.1 fL (80.0-98.0); Mean Platelet Volume 10.1 fL (9.4-12.3); Monocytes Absolute Auto 0.3 X10*3/uL (0.1-1.2); Neutrophils Absolute Auto 2.1 x10*3/uL (2.0-8.3); Neutrophils Percent Auto 55.5 % (45-73); Platelet Count 239 X10*3/uL (160-400); Red Blood Count 4.39 X10*6/uL (4.20-5.50); Red Cell Distribution Width 12.6 % (11.0-16.0); SCAN SMEAR FLAG 1; White Blood Count 3.7 X10*3/uL (4.8-10.8)
[2024-01-20 12:36] LABS: Alanine Aminotransferase 49 U/L (0-31); Albumin Level 4.3 g/dL (3.5-5.0); Alkaline Phosphatase 68 U/L (39-117); Anion Gap 9 (12-20); Aspartate Amino Transferase 31 U/L (5-31); Bilirubin Direct 0.2 mg/dL (0.0-0.5); Bilirubin Total 0.6 mg/dL (0.0-1.0); Blood Urea Nitrogen 9 mg/dL (9-16); Calcium 8.9 mg/dL (8.4-10.2); Carbon Dioxide 27 mmol/L (22-29); Chloride 110 mmol/L (96-108); Estimated Glomerular Filt Rate > 60; Glucose Random 96 mg/dL (60-115); Potassium 3.8 mmol/L (3.3-5.1); SLIDE REVIEW VERIFIED; Sodium 142 mmol/L (135-145)
[2024-01-24 14:09] LABS: Anti Nuclear Antibody Screen NEGATIVE (NEGATIVE)
[2024-01-24 20:03] LABS: Anti DNA DS Antibody <1 IU/mL; Antibody to SS-A Antigen <1.0 NEG AI (<1.0 NEG); Antibody to SS-B Antigen <1.0 NEG AI (<1.0 NEG); SM/Ribonucleoprotein Ab 1.9 POS AI (<1.0 NEG); Smith Protein <1.0 NEG AI (<1.0 NEG)
== END 2024-01-20 11:09 | disposition home or self-care (01) ==
LOC: HO.LAB 11:08
PROVIDERS: PCP Internal Medicine; Visit Provider Physician Assistant Medical
DX: L30.9 Dermatitis, unspecified (principal)
CPT/HCPCS: 36415; 80048; 80076; 85025; 86038; 86225; 86235

== ENCOUNTER 2024-02-02 20:23 | Emergency (ER) | payer OTHER, SELFPAY ==
--- NOTE | ~2024-02-02 | XR_ITS ---
EXAMINATION: XR CHEST CLINICAL INFORMATION: Persistent cough, shortness of breath COMPARISON: Chest x-ray on 04/21/2020 TECHNIQUE: 2 views of the chest were obtained. FINDINGS: No significant abnormality is noted involving the heart, lungs, mediastinum, bony thorax or soft tissues. XR/XR chest 2V IMPRESSION: Unremarkable examination. Electronically signed by: Mara Polanco MD 02/02/2024 09:53 PM EDT RP
[2024-02-02 21:11] VITALS: BP 117/65; PULSE 76; RESP 18; TEMP 36.7; O2SAT 100; BMI 27.4
--- OUTSIDE RECORDS SUMMARY | 2024-02-02 21:36 | XMS_ITS | Continuity of Care Document ---
Author Organization [facility] ter Address [address] [place] [address]- Care Team Providers Care Operator Receptionist Name Role Phone Not on Staff, PCP Primary Care Physician Unavail able Encounter [facility] [place] Date(s): 10/16/20 - 10/16/[address] [address]- Discharge Disposition: A-D/C Home Attending Physician: Gus Amador MD Admitting Physician: Gus Amador MD Referring Physician: Gus Amador MD Allergies, Adverse Reactions, Alerts Substance Reaction Severity Status NKA Active Medications Multivitamins By Mouth, Daily, 0 Refills, Maintenance, 10/16/20 20:31:00 EDT, Partial fill upon patient request if the prescription is for a schedule II opioid drug. Start Date: 10/16/20 Status: Ordered Vital Signs Most recent to oldest [Reference Range]: 1 Oxygen Saturation [94-100 %] 99 % (10/16/20 8:29 PM) Pulse Rate [55-90 bpm] 94 bpm *H* (10/16/20 8:29 PM) Blood Pressure [90-138/55-84 mm Hg] 115/ 57mm Hg (10/16/20 8:29 PM) Respiratory Rate [16-30 br/min] 18 br/mi n (10/16/20 8:29 PM) Temperature [96.8-100.4 DegF] 97.9 DegF (10/16/20 8:29 PM) Mode of Delivery (Oxygen) Room air (10/16/20 8:29 PM) Blood pressure sites Arm, left (10/16/20 8:29 PM) Temperature Route Oral (10/16/20 8:29 PM)
--- OUTSIDE RECORDS SUMMARY | 2024-02-02 21:36 | XMS_ITS | Continuity of Care Document ---
Author Organization [facility] Address [address] [place] [address]- Care Team Providers Care Ross Furnace Operator Name Role Phone Javed FRAIRE, Karla Primary Care Physician Encounter [facility] [place] Date(s): 12/03/23 - 12/03/[address] [address] Discharge Disposition: A-D/C Home Attending Physician: Rod Carrasquillo MD Admitting Physician: Rod Carrasquillo MD Referring Physician: Rod Carrasquillo MD Allergies, Adverse Reactions, Alerts No Known Allergies Medications Fentanyl Inj (PACU ONLY) 25 mcg, Injection, IV Push Slowly, Every 5 minutes for 8 doses/times, in PACU ONLY, PRN for Pain , Moderate, Routine, 12/03/23 16:06:00 EDT, Stop date Limited # of times Start Date: 12/03/23 Stop Date: 12/04/23 Status: Discontinued ibuprofen 800 mg oral tablet 800 mg, 1, tablet, By Mouth, Every 8 hours, # 55 tablet, Refills 3, Tot. Refills 3, Maintenance, 12/03/23 15:01:00 EDT, Route to Pharmacy Electronically, [facility]/pharmacy #[id number], Partial fill upon patientrequest if the prescription is for a schedule II op... Start Date: 12/03/23 Status: Ordered oxyCODONE 5 mg oral tablet 5 mg, 1, tablet, By Mouth, Every 6 hours, PRN, for 3 days, # 5 tablet, Refills 0, Tot. Refills 0, Acute 12/06/23 15:01:00 EDT, for pain, 12/03/23 15:01:00 EDT, Route to Pharmacy Electronically, [facility]/pharmacy #[id number], Partial fill upon patient request if... Start Date: 12/03/23 Stop Date: 12/06/23 Status: Ordered Tylenol 325 mg oral tablet 975 mg, 3, tablet, By Mouth, Every 8 hours, # 60 tablet, Refills 0, Tot. Refills 0, Maintenance, 12/03/23 15:01:00 EDT, Route to Pharmacy Electronically, [facility]/pharmacy #[id number], Partial fill upon patientrequest if the prescription is for a schedule II op... Start Date: 12/03/23 Status: Ordered Problem List No Known Problems Vital Signs Most recent to oldest [Reference Range]: 1 2 3 Weight 68.2 kg (12/03/23 12:38 PM) Oxygen Saturation [94-100 %] 98 % (12/03/23 5:15 PM) 100 % (12/03/23 5:00 PM) 99 % (12/03/23 4:45 PM) Pulse Rate [55-90 bpm] 80 bpm (12/03/23 12:38 PM) Blood Pressure [90-138/55-84 mm Hg] 115/68mm Hg (12/03/23 5:15 PM) 111/63mm Hg (12/03/23 5:00 PM) 107/64mm Hg (12/03/23 4:45 PM) Respiratory Rate [16-30 br/min] 14 br/min *L* (12/03/23 5:15 PM) 15 br/min *L* (12/03/23 5:07 PM) 15 br/min *L* (12/03/23 5:00 PM) Temperature [96.8-100.4 DegF] 97.9 DegF (12/03/23 5:15 PM) 98.1 DegF (12/03/23 4:30 PM) 97.1 DegF (12/03/23 12:38 PM) Mode of Delivery (Oxygen) Room air (12/03/23 5:30 PM) Room air (12/03/23 4:30 PM) Room air (12/03/23 12:38 PM) Blood pressure sites Arm, left (12/03/23 12:38 PM) Temperature Route Temporal (12/03/23 5:15 PM) Temporal (12/03/23 4:30 PM) Temporal (12/03/23 12:38 PM) Dry Weight 68.2 kg (12/03/23 12:38 PM) Dry Weight Obtained Via Standing scale (12/03/23 12:38 PM) Social History Social History Type Response Smoking Status Never (less than 100 in lifetime); Interested in cessation: No; Patient wants NRT during admission No;Never entered on: 12/01/23 Sex Note * Pooja Rodriges RN: PERFORM Event Display: Discharge/Transfer Note Hospital Authored Date: [id number] Nursing Discharge Note Entered On: 12/03/2023 16:23 EDT Performed On: 12/03/2023 16:23 EDT by Pooja Rodriges RN Nursing Discharge Note 2 Discharge Time : 12/03/2023 17:35 EDT Pooja Rodriges RN - 12/03/2023 17:44 EDT Discharge Level of Care at Discharge : Home/Halfway/Foster Care Patient Left Unit Via : Wheelchair Patient Accompanied Off Unit with : Responsible adult DC Instructions Provided & Signed by Pt : Yes Patient Understands D/C Instructions : Yes Patient Instructions Discharge Signed : Yes Did Pt have Specialty Bed or Wound Vac : No Pooja Rodriges RN - 12/03/2023 16:23 EDT * Pooja Rodriges RN: PERFORM Event Display: Patient Education/Instruction Authored Date: [id number] Inpatient Adult Discharge Instructions. [address] [address] Name: REKHA RANDALL : 1995?? Visit: 12/03/2023 12:01?? Current Date: 12/03/2023 17:13 ?? Account: [id number]?? Inpatient Adult Discharge Instructions We would like to thank you for allowing us to assist you with your healthcare needs. The following includes patient education materials and information regarding your injury/illness. Our entire staffstrives to provide an excellent experience for our patients and their families. PLEASE ENSURE YOU FOLLOW-UP PER THE INSTRUCTIONS BELOW! ?? YOUR OPINION IS IMPORTANT TO US! Please complete the survey you may receive by mail or email. Your feedback will be used to make improvements to the healthcare experiences of our patients and their families. Surveys are administered by [employer] ?? If further treatment with your primary care physician or another doctor is recommended, it is important for you to keep the appointment. Call your primary care physician or return to the Emergency Department immediately if your condition worsens, fails to improve, or new symptoms develop. If you need to find a doctor, you can call [facility] Link for a referral at [phone] or toll free at [phone] ([phone]) or log in to [email or web address].. ?? [facility], in keeping with [facility] guidance, no longer requires face masks for staff, patientsor visitors in most situations. Similiar to time spent indoors at other locations, there is the chance that you were exposed to repiratory viruses during your time with us (such as flu or COVID-19). If you develop symptoms concerning for a viral respiratory infection, please seek testing (and treatment if indicated) from your medical provider or home test kit. ?? You can view and manage your care through the patient portal or by using a health care jorden of your choosing. [employer] is a website that allows you to securely view your medical information including your hospital discharge summary, office visit summaries, medications and follow-up visits. You can also request appointments, renew medications, and request access to your medical information using a health care jorden of your choosing, or just ask a question. You can enroll at [email or web address] or register during your next office visit. You have been discharged from [facility], Patient Care Unit: [facility]??. If you have any questions regarding these instructions, including results of studies pending, afteryou leave, please call us and we will be happy to assist you 02/11. [facility] Nursing Unit Direct Phone Number, for 02/11 contact and results of studies pending [facility] [address] [place] [address] Your Care Team Attending Physician Rod Carrasquillo MD?? Consulting Providers Rod Carrasquillo MD?? Discharging Providers Eun Oliveira DO Tests Performed Below is a partial list of the tests performed during your hospitalization. You may have had other tests and procedures not included in this list. Please discuss all test results with your provider. No tests performed during this visit.?? Primary Care Provider Karla Burt NP? Advance Directive Health Care Proxy on File No Discharge Vitals Temperature: 98.1 DegF Weight: 68.2 kg Pulse Rate: 80 bpm ?? Respiratory Rate:??15 br/min??Low ?? Systolic Blood Pressure: 111 mm Hg ?? Diastolic Blood Pressure: 63 mm Hg ?? Oxygen Saturation: 100 % ?? Studies Pending All studies ordered during this hospital stay have been completed unless listed below. Please discuss all pending results with your provider listed above in these instructions. ?? No incomplete studies found?? What to do next Instructions From Your Doctor ?? Orders? 12/03/23 16:24:00 EDT?? Scheduled Follow-Up Appointments Wednesday 9:40 AM EDT ?? With: Fredrick Vazuqez DO Where: [facility] - Photonics Engineering Technician [address] [place] [address]- Status: Pending You Need to Schedule the Following Appointments Follow Up with??Rod Carrasquillo Where: [address] [facility] [address] [facility] [place] [address]- Business (1) Follow Up with??Karla Burt When:??In 0 days Where: [address] [place] [address]- Business (1) Discharge Medications REKHA BOSS :1995 Visit Date:12/03/2023 Medications: Please continue your medications until treatment is completed or stopped by your provider. Medications not listed below should be discontinued. Discuss any questions related to medications with your provider. What How Much When Instructions Next Dose New Acetaminophen (Tylenol 325 mg oral tablet) 3 tab(s) Oral Every 8 hours Pickup at [facility]/pharmacy #[id number] 6:45 pm New Ibuprofen (ibuprofen 800 mg oral tablet) 1 tab(s) Oral Every 8 hours Refills: 3 Pickup at [facility]/pharmacy #[id number] after 3:45 pm New Oxycodone (oxyCODONE 5 mg oral tablet) 1 tab(s) Oral Every 6 hours as needed for for pain Duration: 3 Days Pickup at [facility]/pharmacy #[id number] 11:00 pm Pharmacy Information [facility]/pharmacy #[id number]: [address], [place] [phone] Prescription Given During Visit Acetaminophen (Tylenol 325 mg oral tablet) - 3 tablet = 975 mg, By Mouth, Every 8 hours, # 60 tablet, 0 Refills, [id number], [address] [place] [phone]?? Ibuprofen (ibuprofen 800 mg oral tablet) - 1 tablet = 800 mg, By Mouth, Every 8 hours, # 55 tablet,3 Refills, [facility]/pharmacy #[id number], [address] [place] [phone]?? Oxycodone (oxyCODONE 5 mg oral tablet) - 1 tablet = 5 mg, By Mouth, Every 6 hours, # 5 tablet, 0 Refills, [facility]/pharmacy #[id number], [address] [place] [phone]?? Laboratory Results Below is a partial list of the most recent Laboratory test results done prior to this discharge. You may have had other tests and procedures not included in this list. Please discuss all test resultswith your provider. Allergies (NKA means No Known Allergies) NKA Problems Active Problems??(1) No Chronic Problems?? Education Materials Below is the list of Educational Leaflet Providered with your Discharge Instructions. [employer] Patient Education - Surgery Medical Daystay Surgical Overnight Discharge Instructions?? [employer] Patient Education - ??NSAID Analgesic Schedule?? Valuables and Belongings I fully understand and agree that [facility] accepts no responsibility for all my personal property including clothing, toilet articles, radios, jewelry, dentures, hearing aids, rings, money, or any other property that is in my possession or is brought to me after admission. I understand certain valuables may be placed in a hospital safe for a short period of time. I understand that the hospital is not liable for loss or damage due to accident, fire, or other natural occurrence while said property is in the safe. I accept full responsibility for any personal property that I keep with me, and will not hold the hospital responsible in case of loss or disappearance. I acknowledge that i have been encouraged to send valuables and belongings home. ?? Review of Valuable and Belonging List: With patient Date for Pt to Sign Valuables/Belongings: 12/03/23 12:38:00 ?? Valuables & Belongings ?? Clothes Electronic devices Jewelry Monetary Items Personal devices Miscellaneous Medications (Valuables) Valuables at Bedside Jacket, Pants, Shirt, Shoes, Undergarments Cell phone ? Valuables Sent Home ? Valuables Sent to Security ? Valuables Sent to Locker ? Other Discharge Information ? Case Management Discharge Plan?? Discharge Plan?? Discharge Level of Care at Discharge: Home/Halfway/Foster Care ?? Pulmonary Rehab Status?? Pulmonary Rehab Discharge Status?? Respiratory Rate:??15 br/min??Low ? Common Emergency Awareness Tips IS IT A STROKE? Act FAST and Check for these signs: FACE Does the face look uneven? ARM Does one arm drift down? SPEECH Does their speech sound strange? TIME Call at any sign of stroke ?? Heart Attack Signs Chest discomfort: Most heart attacks involve discomfort in the center of the chest and lasts more than a few minutes, or goes away and comes back. It can feel like uncomfortable pressure, squeezing, fullness or pain. Discomfort in upper body: Symptoms can include pain or discomfort in one or both arms, back, neck, jaw or stomach. Shortness of breath: With or without discomfort. Other signs: Breaking out in a cold sweat, nausea, or lightheaded. Remember, MINUTES DO MATTER. If you experience any of these heart attack warning signs, call to get immediate medical attention! ?? Smoking can increase your chances of developing chronic health problems and can cause harmful effects to other family members in your house. If you smoke, you are strongly encouraged to quit. Please call [employer] Link at [phone] or [phone] ([phone]) or log in to [email or web address] for referrals to smoking cessation programs. ?? 345 Suicide & Crisis Lifeline is available 02/11 if you or someone you know needs to find a reason to keep living. By calling 610 you'll be connected to a skilled, trained counselor at a crisis center in your area. INPATIENT DISCHARGE INSTRUCTIONS SIGNATURE PAGE REKHA BOSS Location:[facility] Registration Date and Time:12/03/2023 12:01 EDT Primary Care Physician: Karla Burt NP, Attending Physician: Rod Carrasquillo MD, I REKHA BOSS, have received the above patient education materials/instructions andhave verbalized understanding. If ambulance or transport services are being used I further acknowledge being given a choice of service. ?? If you need to contact me, please call me at this number: . Patient/Product Test Specialist Name: Patient/Product Test Specialist Signature: Relationship to Patient: Witness Name/Signature: Date: * Pooja Rodriges RN: PERFORM, SIGN, VERIFY Event Display: Patient Education Handout Authored Date: [id number] * Pooja Rodriges RN: PERFORM Event Display: Patient Education Leaflets Authored Date: [id number] Surgery Medical Daystay Surgical Overnight Discharge Instructions ?? 295 Medical Daystay/Surgical Overnight Discharge Instructions ? Since your coordination and judgment may be altered by medication and/or anesthesia, a responsible adult must drive you home from the hospital. ? If you have received medication for pain or sedation while under our care, you should not drive, operate machinery, drink alcohol, or sign any legal documents for 24 hours.?? You should have someone with you at home tonight. ? Remain at home the day of discharge.?? You may be up and about unless otherwise instructed by your physician. ? You may resume your daily prescription medication schedule.?? Any depressant medication should be avoided for 24 hours unless otherwise instructed by your surgeon or anesthesiologist. ? Call your physician for a follow-up appointment.? If you experience unusual or severe pain not relied by your pain medication, excessive bleedingor drainage, persistent nausea and vomiting, excessive swelling or redness, foul odor from incisionsite or fever over 100.6F, you need to call your physician. ? A follow-up phone call by a nurse will be made the day after your procedure.?? If you have stayed with us over night, you will not be receiving a follow-up phone call. ? Nausea and vomiting are a common side effect of prescription pain medication.?? We recommend that pills are not taken on an empty stomach.?? While taking any prescription pain medication you should not drive or drink alcohol. ? * Pooja Rodriges RN: PERFORM Event Display: Patient Education Leaflets Authored Date: [id number] NSAID Analgesic Schedule ?? 604 NSAID???s Analgesic Schedule ?? Pain is the primary source of illness following your procedure and can include dehydration, difficulty and painful swallowing, and weight loss. These symptoms can lead to increased post-operative visits and hospital readmission. The best way to control pain is to take pain medications regularly. Your doctor has recommended both Ibuprofen and Acetaminophen (generic/store brands are okay, too). These can be picked up over the counter at your pharmacy of choice. Follow the instructions on the bottle to determine the proper dosage to give. The simplest way to take these medications it to rotate the two at 3-hour intervals. Here is a sample diagram. The time you take your medications may vary from this example. Do not give Ibuprofen more than every 6 hours or Acetaminophen every 4 hours. Do not give Acetaminophen if your doctor has given you a prescription that contains Acetaminophen. ? Patient Care team information Care Team Personnel Name: Karla Burt NP Position: Reference Physician Member Role: PCP Address: Address: [address] [place] [address]- Care Team Related Persons Name: BREE DAHIANA
--- OUTSIDE RECORDS SUMMARY | 2024-02-02 21:36 | XMS_ITS | Continuity of Care Document ---
Author Organization [facility] Address [address] [place] [address]- Care Team Providers Care Social Work Supervisor Name Role Phone Karla Burt NP Primary Care Physician Encounter [facility] [place] Date(s): 12/17/23 - 01/16/[address] [address]- Attending Physician: Farnaz Britt Admitting Physician: Farnaz Britt Referring Physician: AdmtrFarnaz Allergies, Adverse Reactions, Alerts No Known Allergies Medications ibuprofen 800 mg oral tablet 800 mg, 1, tablet, By Mouth, Every 8 hours, # 55 tablet, Refills 3, Tot. Refills 3, Maintenance, 12/03/23 15:01:00 EDT, Route to Pharmacy Electronically, [facility]/pharmacy #[id number], Partial fill upon patientrequest if the prescription is for a schedule II op... Start Date: 12/03/23 Status: Ordered Tylenol 325 mg oral tablet 975 mg, 3, tablet, By Mouth, Every 8 hours, # 60 tablet, Refills 0, Tot. Refills 0, Maintenance, 12/03/23 15:01:00 EDT, Route to [facility]acy Electronically, [id number], Partial fill upon patientrequest if the prescription is for a schedule II op... Start Date: 12/03/23 Status: Ordered Problem List No Known Problems Social History Social History Type Response Smoking Status Never (less than 100 in lifetime); Interested in cessation: No; Patient wants NRT during admission No;Never entered on: 12/01/23 Sex Patient Care team information Care Team Personnel Name: Karla Burt NP Position: Reference Physician Member Role: PCP Address: Address: [address] [place] [address]- Care Team Related Persons Name: NO, ONE
--- OUTSIDE RECORDS SUMMARY | 2024-02-02 21:36 | XMS_ITS | Continuity of Care Document ---
Author Organization [facility] Address [address] [place] [address]- Care Team Providers Care Dog Raiser Name Role Phone Not on Staff, PCP Primary Care Physician Unavail able Encounter [facility] Date(s): 07/19/23 - 08/18/[address] [address]- Allergies, Adverse Reactions, Alerts No Known Allergies Medications Multivitamins By Mouth, Daily, 0 Refills, Maintenance, 10/16/20 20:31:00 EDT, Partial fill upon patient request if the prescription is for a schedule II opioid drug. Start Date: 10/16/20 Status: Ordered Patient Care team information Care Team Personnel Name: Not on Staff, PCP Position: [facility] Physician (General Medicine) Member Role: PCP
--- OUTSIDE RECORDS SUMMARY | 2024-02-02 21:36 | XMS_ITS | Continuity of Care Document ---
Author Organization [facility] Address [address] [place] [address]- Care Team Providers Care Chef De Froid Name Role Phone Karla Burt NP Primary Care Physician Encounter [facility] [place] Date(s): 12/02/23 - 01/16/[address] [address]- us Attending Physician: Not on Staff, Attending MD Allergies, Adverse Reactions, Alerts No Known Allergies Medications ibuprofen 800 mg oral tablet 800 mg, 1, tablet, By Mouth, Every 8 hours, # 55 tablet, Refills 3, Tot. Refills 3, Maintenance, 12/03/23 15:01:00 EDT, Route to Pharmacy Electronically, [facility]/pharmacy #[id number], Partial fill upon patientrequest if the prescription is for a schedule II op... Start Date: 12/03/23 Status: Ordered Tylenol 325 mg oral tablet 975 mg, 3, tablet, By Mouth, Every 8 hours, # 60 tablet, Refills 0, Tot. Refills 0, Maintenance, 12/03/23 15:01:00 EDT, Route to Pharmacy Electronically, [facility]/pharmacy #[id number], Partial fill upon patientrequest if [...] Reference Physician Member Role: PCP Address: Address: [address] [place] [address]- Care Team Related Persons Name: NO, ONE
--- OUTSIDE RECORDS SUMMARY | 2024-02-02 21:36 | XMS_ITS | Continuity of Care Document ---
Author Organization [facility] Address [address] [place] [address]- Care Team Providers Care Police Chief Deputy Name Role Phone Karla Burt NP Primary Care Physician Encounter [facility] [place] Date(s): 09/27/23 - 10/27/[address] [address]- Attending Physician: Farnaz Britt Admitting Physician: Farnaz Britt Referring Physician: Admtr ArMarlon Allergies, Adverse Reactions, Alerts No Known Allergies Medications Multivitamins By Mouth, Daily, 0 Refills, Maintenance, 10/16/20 20:31:00 EDT, Partial fill upon patient request if the prescription is for a schedule II opioid drug. Start Date: 10/16/20 Status: Ordered Patient Care team information Care Team Personnel Name: Karla Burt NP Position: Reference Physician Member Role: PCP Address: Address: [address] [place] [address]- Care Team Related Persons Name: NO, DAHIANA
[2024-02-02 22:00] VITALS: BP 125/72; PULSE 76; RESP 18; TEMP 36.7; O2SAT 98
[2024-02-02 22:20] LABS: Influenza A PCR NEGATIVE (Negative); Influenza B PCR NEGATIVE (Negative); Resp Syncy Virus RNA Qual PCR NEGATIVE (Negative); SARS COV2 PCR INHOUSE NEGATIVE (Negative)
--- NOTE | 2024-02-03 02:11 | ED.URI ---
HPI - URI/Sore Throat General Chief Complaint: Upper Respiratory Symptoms Stated Complaint: sinus infection/feels worse/sob Time Seen by Provider: 02/03/24 00:38 Source: patient Limitations: no limitations History of Present Illness ED Provider: Cheyanne Berg PA-C HPI Narrative: 28-year-old female presents with cough cold symptoms x2 weeks. Patient states she has had nasal congestion, headache, dry repetitive cough, sore throat, fatigue. Patient states her primary caregiver antibiotics for a sinus infection. Over the past few days her symptoms have progressed. Denies fever or sick contacts with same symptoms. Related Data Home Medications ?Medication ?Instructions ?Recorded ?Confirmed ferrous gluconate 324 mg (38 mg 1 tab PO QAM 10/16/20 10/16/20 iron) tablet Previous Rx's ?Medication ?Instructions ?Recorded cephalexin 500 mg tablet 500 mg PO Q6H 7 days #28 tabs 07/12/21 doxycycline hyclate 100 mg capsule 100 mg PO BID 7 days #14 caps 07/12/21 ferrous sulfate 325 mg (65 mg 325 mg PO DAILY #10 tabs 07/12/21 iron) tablet,delayed release cephalexin 500 mg capsule 500 mg PO Q6H 5 days #20 caps 11/09/22 mupirocin 2 % topical ointment 1 appl topical TID #22 grams 11/09/22 cephalexin 500 mg capsule 500 mg PO Q8H 7 days #21 caps 05/31/23 albuterol sulfate 90 mcg/actuation 2 puff inhalation Q4-6H PRN 02/03/24 aerosol inhaler shortness of breath or wheezing 7 days #6.7 grams Allergies Allergy/AdvReac Type Severity Reaction Status Date / Time No Known Allergies Allergy Verified 02/02/24 21:12 Review of Systems Review of Systems: Yes all other systems are reviewed and are negative Constitutional: Constitutional: Reports fatigue and Denies fever(s) ENT: Reports nasal congestion and Reports sore throat Cardiovascular: Cardiovascular: Denies chest pain and Denies dyspnea Respiratory: Respiratory: Reports cough, Denies dyspnea and Denies wheezing Gastrointestinal: Gastrointestinal: Denies vomiting Endocrine: Endocrine: Reports fatigue Allergic/Immunologic: Allergic/Immunologic: Denies wheezing PMFSH Past Medical History Attestation statement: The following information was validated with the patient. Medical History COVID-19 Social History Social History Alcohol intake: never Patient Tobacco Use Status: Never used Tobacco Advance Directives: No Advance Directives Information Provided: Yes Do you have a plan to hurt others: No Plan Physical Exam Vital Signs: Vital Signs: Last Vital Signs Temp 98.1 F 02/03/24 02:22 Pulse 76 02/03/24 02:22 Resp 18 02/03/24 02:22 BP 125/72 02/03/24 02:22 Pulse Ox 98 02/03/24 02:22 O2 Del Method Room Air 02/03/24 02:22 BMI result Body Mass Index 27.4 Const: Other: Alert Orientation/consciousness: patient oriented x3 HEENT: Other: Opiate erythematous without overlying exudate, uvula midline Resp: Other: Lungs clear to auscultation, active bronchospasm cough Cardio: Other: Normal peripheral perfusion Skin: Other: Warm dry no rash Neuro: General: patient oriented x3, no focal motor deficits and CN's II-XI intact bilaterally Psych: Other: Calm cooperative Medical Decision Making Medical Decision Making MDM Narrative: 28-year-old female presents with cough cold symptoms x2 weeks. Patient states she has had nasal congestion, headache, dry repetitive cough, sore throat, fatigue. Patient states her primary caregiver antibiotics for a sinus infection. Over the past few days her symptoms have progressed. Denies fever or sick contacts with same symptoms. No relevant chronic issues History: Per patient I have considered the following differential diagnoses: Viral syndrome, pneumonia, strep pharyngitis, peritonsillar abscess, bronchitis Plan: Patient here with prolonged viral syndrome, the fact that she was on antibiotics and she still has symptoms proves it. Chest x-ray and viral panel obtained. She does have a bronchospasm type cough, no wheezing, we will send with an inhaler. She can continue to follow up with her primary care provider as needed. I have independently reviewed the following tests: Labs: Viral panel negative Chest x-ray: XR/XR chest 2V IMPRESSION: Unremarkable examination. Electronically signed by: Mara Polanco MD 02/02/2024 09:53 PM EDT Lab Data Labs: Lab Results 02/02/24 Range/Units 21:26 Influenza Type A (PCR) NEGATIVE (Negative) Influenza Type B (PCR) NEGATIVE (Negative) RSV RNA Qual (PCR) NEGATIVE (Negative) SARS-CoV-2 RNA (RT-PCR) NEGATIVE (Negative) Discharge Plan Discharge Clinical Impression: Acute viral syndrome, Acute bronchospasm Patient Disposition: Home, Self-Care Instructions: Viral Syndrome (ED), Bronchospasm (ED) Additional Instructions: You were screened for RSV, influenza and COVID, the viral panel was negative. Your chest x-ray was clear you do not have pneumonia. You have yet another respiratory virus causing your symptoms. See home care instructions. Use the albuterol inhaler as needed for your bronchospasm type cough. Follow up with your primary care provider as needed. Prescriptions: New albuterol sulfate 90 mcg/actuation HFA aerosol inhaler 2 puff inhalation Q4-6H PRN (Reason: shortness of breath or wheezing) 7 Days Qty: 6.7 0RF No Action ferrous gluconate 324 mg (38 mg iron) tablet 1 tab PO QAM doxycycline hyclate 100 mg capsule 100 mg PO BID 7 Days Qty: 14 0RF cephalexin 500 mg tablet 500 mg PO Q6H 7 Days Qty: 28 0RF ferrous sulfate 325 mg (65 mg iron) tablet,delayed release (DR/EC) 325 mg PO DAILY Qty: 10 0RF mupirocin 2 % ointment 1 appl topical TID Qty: 22 0RF cephalexin 500 mg capsule 500 mg PO Q6H 5 Days Qty: 20 0RF cephalexin 500 mg capsule 500 mg PO Q8H 7 Days Qty: 21 0RF Stand Alone Forms: Work/School Release Interventions: ED Discharge Assessment Last Done: 02/03/24 02:22 Discharge Date/Time: 02/03/24 02:23 Print Language: Occitan
[2024-02-03 02:22] VITALS: BP 125/72; PULSE 76; RESP 18; TEMP 36.7; O2SAT 98
== END 2024-02-03 02:23 | disposition home or self-care (01) ==
PROVIDERS: Emergency Provider Internal Medicine; PCP Internal Medicine
DX: B34.9 Viral infection, unspecified (principal); J98.01 Acute bronchospasm; Z03.818 Encounter for observation for suspected exposure to other biological agents ruled out; R05.9 Cough, unspecified
CPT/HCPCS: 0241U; 71046; 99283

== ENCOUNTER 2024-05-10 07:47 | Outpatient (REF) | payer OTHER, SELFPAY ==
--- OUTSIDE RECORDS SUMMARY | 2024-05-10 07:51 | XMS_ITS | Data Portability ---
Author Organization [facility], [address] Address [address] [place] [address] Assessment No assessment recorded. Plan of Treatment Reminders Order Date Submit Date Provider Last Modified By Organization Details Last Modified Time Details Appointments None recorded. Lab None recorded. Referral None recorded. Procedures None recorded. Surgeries None recorded. Imaging None recorded. Medication Orders amoxicillin 875 mg tablet 2022 023 [id number], [address] [place], [address], 19:59:54 Patient TargetsNo targets recorded. Patient Instructions Encounter Date Encounter Id Patient Instructions Last Modified By Organization Details Last Modified Time 11/08/2022 [id number] Cellulitis is a skin infection caused by bacteria, most often strep or staph. It often occurs after a break in the skin from a scrape, cut, bite, or puncture, or after a rash. Cellulitis may be treated without doing tests to find out what caused it. But your doctor may do tests, if needed, to look for a specific bacteria, like methicillin-resist ant Staphylococcus aureus (MRSA). The doctor has checked you carefully, but problems can develop later. If you notice any problems or new symptoms, get medical treatment right away. How can you care for yourself at home? Take your antibiotics as directed. Do not stop taking them just because you feel better. You need to take the full course of antibiotics. Prop up the infected area on pillows to reduce pain and swelling. Try to keep the area above the level of your heart as often as you can. If your doctor told you how to care for your infection, follow your doctor's instructions. If you did not get instructions, follow this general advice: Wash the area with clean water 2 times a day. Don't use hydrogen peroxide or alcohol, which can slow healing. You may cover the area with a thin layer of petroleum jelly, such as Vaseline, and a non-stick bandage. Apply more petroleum jelly and replace the bandage as needed. Be safe with medicines. Take pain medicines exactly as directed. If the doctor gave you a prescription medicine for pain, take it as prescribed. If you are not taking a prescription pain medicine, ask your doctor if you can take an [id number] medicine. [email or web address] Not available 11/08/2022 19:59:32 Reason for Referral None Reported. Problems No Known Problems Medical Equipment None Reported. Allergies No known drug allergies Medications Name Sig Start Date Stop Date Status Note LastModified by Organization Details LastModified Time amoxicillin 500 mg capsule TAKE 1 CAPSULE BY MOUTH EVERY 8 HOURS FOR 7 DAYS 11/08 completed Not Available Not Available Not Available fluconazole 150 mg tablet TAKE 1 TABLET BY MOUTH AND REPEAT DOSE IN 3 DAYS 11/08 completed Not Available Not Available Not Available metronidazo le 0.75 % (37.5 mg/5 gram) vaginal gel APPLY VAGINALLY AT BEDTIME FOR 5 NIGHTS 11/08 completed Not Available Not Available Not Available doxycycline monohydrate 50 mg capsule TAKE ONE CAPSULE DAILY WITH FOOD FOR 2 MONTHS 11/08 completed Not Available Not Available Not Available amoxicillin 875 mg tablet Take 1 tablet every 12 hours by oral route with meals for 10 days. 2022 active Not Available Not Available Not Avai lable triamcinolo ne acetonide 0.025 % topical cream APPLY TO AFFECTED AREA 3-4X/DAY NEEDED FOR FOR IRRITATIO N 11/08 completed Not Available Not Available Not Available tacrolimus 0.1 % topical ointment APPLY A THIN LAYER TO THE FACE ONE TO TWO TIMES DAILY NEEDED 11/08 completed Not Available Not Available Not Available clotrimazol e-betametha sone 1 %-0.05 % topical cream APPLY SPARINGLY TO AFFECTED AREA TWICE A DAY FOR UP TO 2 WEEKS 11/08 completed Not Available Not Available Not Available metronidazo le 0.75 % topical cream APPLY THEN LAYER TO AFFECTED AREAS ON FACE ONCE DAILY 11/08 completed Not Available Not Available Not Available Vitals Date Recorded Body weight Provider Name an d Address Organization Details Last Updated DateTime 11/08/2022 55028.45 g Elis San Ben[place] PA - [facility] 0 11/08/2022 19:17:47 Date Recorded Body mass index (BMI) Body height Provider Name and Address Organization Details Last Updated DateTime 11/08/2022 27.6 kg/m2 157.48 cm Elis [place] PA - [facility] 11/08/2022 19:17:49 Date Recorded Pain severity - 0-10 verbal numeric rating [Score] - Reported Provider Name and Address Organization Details Last Updated DateTime 11/08/2022 0 Elis San Ben[place] PA - [facility] 0 11/08/2022 19:18:50 Date Recorded Respiratory rate Provider Name a nd Address Organization Details Last Updated DateTime 11/08/2022 20 /min Elis [place] PA - [facility] 0 11/08/2022 19:18:56 Date Recorded Oxygen saturation Oxygen saturation in Arterial blood by Pulse oximetry Provider Name and Address Organization Details Last Updated DateTime 11/08/2022 97 % 97 % Elis Kaity PA - [facility] 11/08/2022 19:20:12 Date Recorded Heart rate Provider Name an d Address Organization Details Last Updated DateTime 11/08/2022 77 /min Elis [place] PA - [facility] 0 11/08/2022 19:20:14 Date Recorded Body temperature Provider Name a nd Address Organization Details Last Updated DateTime 11/08/2022 98.2 [degF] Elis Kaity PA - [facility] 11/08/2022 19:20:17 Date Recorded Systolic blood pressure Diastolic blood pressure Provider Name and Address Organization Details Last Updated DateTime 11/08/2022 106 mm[Hg] 74 mm[Hg] Elis San Benito PA - [facility] 11/08/2022 19:20:10 Social History Question Answer Notes LastModified by Organizat ion Details LastModified Time Tobacco Smoking Status Never Smoker Elis [place] null, PA - [facility] 11/08/2022 19:18:40 What Is Your Level Of Alcohol Consumption? None Information not available 11/08/2022 Have You Had Direct Contact, Or Contact During Intimacy, With Monkeypox Rash, Scabs, Or Body Fluids From A Person With Monkeypox? No Information not available 11/08/2022 Do You Use Any Illicit Or Recreational Drugs? No Information not available 11/08/2022 Have You Recently Traveled Abroad? No Information not available 11/08/2022 Do You Or Have You Ever Used Any Other Forms Of Tobacco Or Nicotine? No Information not available 11/08/2022 Sex: Unknown Functional Status None recorded. Mental Status None recorded. Family History Relationship Description Onset Age of this Age Resolved Age Notes LastModified by Organization Details LastModified Time Father No current problems or disability Not available 11/08 19:18:35 Mother No current problems or disability Not available 11/08 19:18:35 Medical History No medical history recorded. Gynecological History Statement/Question Response Is there any chance of ? No LMP N/A Obstetrics History GPAL:G 0 P 0 0 0 0 Immunizations Vaccine Type Date Status Note Provider Nam e and Address Organization Details Recorded Time Influenza, MDCK, quadrivalent, PF 05/17/2020 completed Elis Kaity null, PA - [facility] 11/08/2022 19:17:52 Influenza, MDCK, quadrivalent, PF 07/24/2021 completed Elis [place] null, PA - [facility] 11/08/2022 19:17:52 Influenza, MDCK, quadrivalent, PF 02/11/2018 completed Elis Kaity null, PA - [facility] 11/08/2022 19:17:52 COVID-19, mRNA, LNP-S, PF, 30 mcg/0.3 mL dose 12/23/2020 completed Elis [place] null, PA - [facility] 11/08/2022 19:17:52 COVID-19, mRNA, LNP-S, PF, 30 mcg/0.3 mL dose 01/13/2021 completed Elis Kaity null, PA - [facility] 11/08/2022 19:17:52 Tdap 09/12/2020 completed Elis Kaity null, PA - [facility] 11/08/2022 19:17:52 varicella 11/24/2020 completed Elis [place] null, PA - [facility] 11/08/2022 19:17:52 Influenza, split virus, trivalent, PF 05/25/2015 completed Elis [place] null, PA - [facility] 11/08/2022 19:17:52 Past Encounters Encounter ID Performer Location Encounter Start Date Encounter Closed Date Diagnosis/Indication Diagnosis SNOMED-CT Code Diagnosis ICD10 Code Diagnosis Note [id number] [address] [place] [address] 03/23/2019 14:19:07 03/23/2019 15:10:10 [id number] [address] [place] [address] 06/27/2019 08:19:09 06/27/2019 08:44:10 [id number] LEANNE MATA [address] [place] [address] 11/08/2022 19:02:03 12/03/2022 14:29:51 Infection of ear lobe 93465665 H60.8X9 Cellulitis of both external ears 5112369823 866717 H60.13 Health Concerns Section Related Observation LastModified by Organization Detai ls LastModified Time None Recorded Concern Status LastModified by Organization Details LastModified Time None Recorded Advance Directives Directive None Recorded Payers Encounter Date Sequence Insurance Name Policy Number Policy Quinones Covered Member ID Quinones Member ID Guarantor Name 06/27/2019 1 [facility] [place] [place] PLAN (MEDICAID HMO) [id number] Kylah steele [id number] Kylah steele 11/08/2022 1 [facility] [employer] [facility] PLAN (MEDICAID HMO) [id number] Kylah steele [id number] Kylah steele Notes Date Note Type Note Provider Name and Address Organization Details Recorded Time 11/08/2022 text/html Ear Pain Brief HPIReported bypatient.Location :pain radiates to jaw; bilateral; bilateral outer ear lesion with right sided superior cervical lymph node enlargement. Onset/Timing:start ed 6days ago; constant pain Duration:occurs daily; constant pain Quality:no itching; no discharge from the ears; no burning;throbbing pain;aching pain Severity:getting worse; no fever;interferes with daily activities;interfe res with ability to sleep Context:no recent trauma; no recent ear infection; no recent swimming; no immunocompromise; no dental problems; no recent airplane travel; no scuba diving; non-smoker;recent URI Alleviating factors:irrigation s of ear Aggravating factors:irrigation of ear Associated Symptoms:no cough; no jaw popping or clicking; No decreased appetite; no discharge from ear; no nasal congestion; no nasal discharge; no hearing loss; no sense of fullness; no sore throat; no dental pain; no jaw pain; no tinnitus; no decreased hearing; no muffled hearing Pankaj Ludwig NP [address] [place], [address], PA - [facility] 11/08/2022 20:01:39 OBGyn Episode No OBEpisode recorded.
--- OUTSIDE RECORDS SUMMARY | 2024-05-10 07:51 | XMS_ITS | Clinical Summary ---
Author Organization [address] Address [address] [place] [phone] Phone Care Team Providers Care Senior Software Project Manager Name Role Phone Seng Alvarez MD Primary Care Provider [phone] Allergies No known active allergies Medications Medication Sig Dispensed Refills Start Date End Date Status clotrimazole-betamet hasone (LOTRISONE) 1-0.05 % cream Apply topically 2 (two) times a day. 30 g 03/13/2024 03/13/2025 Active ferrous sulfate 325 mg (65 mg elemental iron) tablet TAKE 1 TABLET BY MOUTH EVERY OTHER DAY 12/19/2023 Active medroxyPROGESTERone 150 mg/mL injection Inject 1 mL into the muscle Every 3 Months. 07/19/2023 Active blood-glucose meter misc 1 Kit by Does not apply route 4 times daily. Test blood sugars 4 times a day Fasting and 2 hrs after each meal 04/29/2023 Active FREESTYLE LANCETS MISC 1 Device by Does not apply route 4 times daily. 04/29/2023 Active blood sugar diagnostic (FreeStyle Lite Strips) test strip 1 Strip by In Vitro route 3 times daily. 04/29/2023 Active mometasone (ELOCON) 0.1 % cream Apply topically 2 times daily. Active multivit 45/iron/folate 6/dha (PRENATE DHA ORAL) Nkzktu-AiTcf-Kdap- FA-DHA w/o A (Prenate DHA) 18-0.6-0.4-300 MG Cap Take 1 Tablet by mouth daily 11/13/2022 Active Encounters Date Type Department Care Team Description 03/13/2024 2:30 PM EST Office Visit Obstetrics & Gynecology - [address] [phone] Anna Thomas CNM Vaginal itching (Primary Dx); Acute vaginitis 03/13/2024 Telephone Obstetrics and Gynecology - [place] [address] [place] [address] Sean Hogan CNM Vaginal Itching 03/10/2024 Telephone Obstetrics and Gynecology - [place] [address] [place] [address] Sean Hogan CNM Vaginal Itching from Last 3 Months Immunizations Name Administration Dates Next Due Influenza Quadravalent, MDCK , 0.5ml, preservative free (Flucelvax) 6mo and older 07/24/2021,05/17/2020,02/11/2018 Influenza trivalent, 0.5mL, preservative free (Fluarix; FluLaval; Fluzone) ages 6mo and older (Afluria) 3 years and older 12/01/2023,05/25/2015 MMR, measles mumps and rubel la Live (Priorix; M-M-R II) 12mo and older 06/13/2023 Tdap Tetanus diptheria acell ular pertussis (Boostrix; Adacel) 7yo and older 03/30/2023,09/12/2020 Varicella live (Varivax) 12mo and older 06/13/19 24,11/24/2020 Surgical History Surgery Date Site/Laterality Comments OTHER SURGICAL HISTORY 2019 PROCEDURE: HISTORICAL COSMETIC SURGERY; COMMENT: Liposuction BELT ABDOMINOPLASTY PROCEDURE: HISTORICAL TUMMY TUCK OTHER SURGICAL HISTORY PROCEDURE: HISTORY OTHER; COMMENT: butt lift/, infusion BREAST SURGERY PROCEDURE: PA BREAST AUGMENTATION WITH IMPLANT Medical History Medical History Date Comments Anemia in 09/16/2020 DX:Anemia in Kidney stone complicating pr egnancy, third trimester 11/13/2020 DX:Kidney stone complicating , third trimester Situational mixed anxiety an d depressive disorder 03/15/2023 DX:Situational mixed anxiety and depressive disorder Encounter for blood transfusion 06/13/2023 DX:Encounter for blood transfusion; COMMENT: hgb 6.9 hemorrhage 06/2023 DX:Postpar avinash hemorrhage; COMMENT: qbl 1650, requird transfusino History of diet controlled gestational diabetes mellitus (GDM) 2023 DX:History of diet controlled gestational diabetes mellitus (GDM) Family History Medical History Relation Name Comments Hypertension Father Breast cancer Neg Hx Colon cancer Neg Hx Ovarian cancer Neg Hx Pancreatic cancer Neg Hx Prostate cancer Neg Hx Uterine cancer Neg Hx Relation Name Status Comments Father Alive Maternal Grandfather Maternal Grandmother Mother Alive Paternal Grandfather Paternal Grandmother Sister 1 Alive Sister 2 Alive Sister 3 Alive Social History Tobacco Use Types Packs/Day Years Used Date Smoking Tobacco: Never Smokeless Tobacco: Never Alcohol Use Standard Drinks/Week Comments Not Currently 0 (1 standard drink = 0.6 oz pur e alcohol) Sex and Gender Information Value Date Recorded Sex Assigned at Female 03/14/2024 6:15 AM EST Gender Identity Female 03/14/2024 6:15 AM EST Sexual Orientation Not on file Job Start Date Occupation Industry Not on file Not on file Not on file Obstetrics History Last Filed Vital Signs Vital Sign Reading Time Taken Comments Blood Pressure 128/84 03/13/2024 2:44 PM EST Pulse 72 03/13/2024 2:44 PM EST Temperature - - Respiratory Rate - - Oxygen Saturation - - Inhaled Oxygen Concentration - - Weight 64.4 kg (142 lb) 07/19/2023 10:54 AM EDT Height 157.5 cm (5' 2 ) 03/13/2024 2:44 PM EST Body Mass Index 25.97 07/19/2023 10:54 AM EDT Plan of Treatment Upcoming Encounters Date Type Department Care Team (Late st Contact Info) Description 07/17/2024 3:30 PM EDT Office Visit Obstetrics & Gynecology - [facility] [address] [place] [address] Anna Thomas CNM [address] [place] [address] Health Maintenance Due Date Last Done Comments Hepatitis B Vaccines (1 of 3 - 19+ 3-dose series) 2013 Social Influencers of Health Screening 03/15/2022 COVID-19 Vaccine ( season) 2023 01/13/2021, 12/23/2020 Depression Screening 07/18/2024 07/19/2023 Cervical Cancer Screening: Pap Smear 12/17/2025 12/17/2022, 12/17/2022, 10/27/2017, Additional history exists DTaP,Tdap,and Td Vaccines (3 - Td or Tdap) 03/30/2033 03/30/2023, 09/12/2020 HIV Screening Completed 11/23/2022 Hepatitis C Screening Completed 11/23/2022 MMR Vaccines Aged Out 06/13/2023 No longer eligi ble based on patient's age to complete this topic Varicella Vaccines Aged Out 06/13/2023, 11/24/2020 No longer eligible based on patient's age to complete this topic Influenza Vaccine Completed 12/01/2023, , 05/17/2020, Additional history exists HIB Vaccines Aged Out No longer eligi ble based on patient's age to complete this topic HPV Vaccines Aged Out No longer eligi ble based on patient's age to complete this topic Hepatitis A Vaccines Aged Out No long er eligible based on patient's age to complete this topic IPV Vaccines Aged Out No longer eligi ble based on patient's age to complete this topic Meningococcal ACWY Vaccine Aged Out N o longer eligible based on patient's age to complete this topic Pneumococcal Vaccine: Pediatrics (0 to 5 Years) and At-Risk Patients (6 to 64 Years) Aged Out No longer eligible based on patient's age to complete this topic RSV Immunization Patients Under 20 months Aged Out No longer eligible based on patient's age to complete this topic Procedures Procedure Name Priority Date/Time Associated Diagnosis Comments TRICHOMONAS VAGINALIS ANTIGEN Routine 03/13/2024 3:27 PM EST Vaginal itching Acute vaginitis CHLAMYDIA TRACHOMATIS AND NEISSERIA GONORRHOEAE PCR Routine 03/13/2024 3:27 PM EST Vaginal itching Acute vaginitis WET PREP, GENITAL Routine 03/13/2024 3:2 7 PM EST Vaginal itching Acute vaginitis DEPRESSION SCREENING Routine 07/19/2023 HPV Routine 12/17/2022 HEPATITIS C SCREENING Routine 11/23/2022 HIV SCREENING Routine 11/23/2022 from Last 3 Months or Most Recently Relevant to Health Maintenance Results * Trichomonas vaginalis antigen (03/13/2024 3:27 PM EST) Trichomonas vaginalis Negative Negative 03/13/2024 9:19 PM EST [facility] Swab Cervix uteri structure / Unknown Non-blood Collection / Unknown 03/13/2024 3:27 PM EST 03/13/2024 3:52 PM EST Anna Thomas [facility] MICROBIOLOGY - G ENERAL ORDERABLES Performing Organization Address City/[facility]/ZIP Co de Phone Number [facility] [address] [place] [address], [place] [phone] * Chlamydia trachomatis and Neisseria gonorrhoeae molecular study (03/13/2024 3:27 PM EST) Neisseria gonorrhoeae PCR Negative Negative LAB MOLECULAR DIAGNOSTICS METHOD 03/14/2024 10:02 AM EST [facility] Chlamydia trachomatis PCR Negative Negative LAB MOLECULAR DIAGNOSTICS METHOD 03/14/2024 10:02 AM EST [facility] Swab Cervix uteri structure / Unknown Non-blood Collection / Unknown 03/13/2024 3:27 PM EST 03/13/2024 3:52 PM EST Anna Thomas [facility] MICROBIOLOGY - G ENERAL ORDERABLES [facility] [address] [place] [address], [place] [phone] * (ABNORMAL) Wet prep, genital (03/13/2024 3:27 PM EST) Pathologist [facility] Clue Cells, Wet Prep Negative Negative 03/13/2024 9:19 PM EST [facility] Yeast, Wet Prep Positive(A) Negative 03/13/2024 9:19 PM EST [facility] Trichomonas, Wet Prep Indeterminate Negative 03/13/2024 9:19 PM EST [facility] Comment:Refer to Trichomonas antigen. Swab Cervix uteri structure / Unknown Non-blood Collection / Unknown 03/13/2024 3:27 PM EST 03/13/2024 3:52 PM EST Anna Thomas [facility] MICROBIOLOGY - G ENERAL ORDERABLES [facility] [address] [place] [address], * Depression Screening (07/19/2023) Pathologist [facility] Depression Screening Abstracted [facility] Provider MD MOHINDER WINTER * Cervical Cancer Screening: HPV (12/17/2022) [facility] Cervical Cancer Screening: HPV No interpretation , abstracted [facility] Provider MD MOHINDER WINTER * HIV Screening (11/23/2022) [facility] HIV Screening Abstracted [facility] Provider MD MOHINDER WINTER * Hepatitis C Screening (11/23/2022) [facility] Hepatitis C Screening Abstracted [facility] Provider MD MOHINDER Gillespie from Last 3 Months or Most Recently Relevant to Health Maintenance Care Teams Senior Software Project Manager Relationship Specialty Start Date End Date Seng Alvarez MD [address] [place] [address] Dr Allison [place] PCP - General Internal Medicine 03/15/18
[2024-05-10 07:57] LABS: MANUAL DIFF FLAG NO
[2024-05-10 08:34] LABS: Basophils Percent Auto 0.3 % (0-2); Eosinophils Percent Auto 0.3 % (0-4); Hematocrit 35.2 % (37.0-47.0); Hemoglobin 12.2 g/dl (12.0-16.0); Lymphocytes Absolute Auto 1.2 X10*3/uL (1.2-4.9); Lymphocytes Percent Auto 38.7 % (20-40); Mean Corpuscular HGB Conc 34.7 g/dl (31.0-35.0); Mean Corpuscular Hemoglobin 29.2 pg (27.0-33.0); Mean Corpuscular Volume 84.2 fL (80.0-98.0); Mean Platelet Volume 9.7 fL (9.4-12.3); Monocytes Absolute Auto 0.3 X10*3/uL (0.1-1.2); Monocytes Percent Auto 9.4 % (2-11); Neutrophils Absolute Auto 1.6 x10*3/uL (2.0-8.3); Neutrophils Percent Auto 51.3 % (45-73); Platelet Count 227 X10*3/uL (160-400); Red Blood Count 4.18 X10*6/uL (4.20-5.50); White Blood Count 3.2 X10*3/uL (4.8-10.8)
[2024-05-10 09:13] LABS: Alanine Aminotransferase 30 U/L (0-31); Albumin Level 4.1 g/dL (3.5-5.0); Anion Gap 11 (12-20); Aspartate Amino Transferase 25 U/L (5-31); Bilirubin Total 0.7 mg/dL (0.0-1.0); Blood Urea Nitrogen 9 mg/dL (9-16); C Reactive Protein 0.27 mg/dL (< or = 0.50); Carbon Dioxide 23 mmol/L (22-29); Chloride 108 mmol/L (96-108); Estimated Glomerular Filt Rate > 60; Glucose Random 91 mg/dL (60-115); Potassium 3.9 mmol/L (3.3-5.1); Sodium 138 mmol/L (135-145); Total Protein 8.4 g/dL (6.5-8.0)
[2024-05-10 09:25] LABS: Free T4 (Free Thyroxine) 0.96 ng/dL (0.71-1.85); Thyroid Stimulating Hormone 1.57 uIU/mL (0.32-4.0)
[2024-05-10 11:06] LABS: Alkaline Phosphatase 74 U/L (39-117)
== END 2024-05-10 07:48 | disposition home or self-care (01) ==
LOC: HO.LAB 07:47
PROVIDERS: PCP Internal Medicine; Visit Provider Internal Medicine
DX: D64.9 Anemia, unspecified (principal); R21 Rash and other nonspecific skin eruption; R63.5 Abnormal weight gain
CPT/HCPCS: 36415; 80053; 84439; 84443; 85025; 86140

== ENCOUNTER 2024-12-20 09:36 | Outpatient (REF) | payer OTHER, SELFPAY ==
[2024-12-20 09:58] LABS: MANUAL DIFF FLAG NO
[2024-12-20 10:37] LABS: Hematocrit 37.4 % (37.0-47.0); Hemoglobin 13.0 g/dl (12.0-16.0); Imm Gran Abs Auto 0.01 X10*3/uL (0.00-0.03); Imm Gran Pct Auto 0.2 % (0.0-0.4); Lymphocytes Absolute Auto 1.7 X10*3/uL (1.2-4.9); Mean Corpuscular HGB Conc 34.8 g/dl (31.0-35.0); Mean Corpuscular Hemoglobin 29.3 pg (27.0-33.0); Mean Corpuscular Volume 84.4 fL (80.0-98.0); NRBC Abs Auto 0.000 X10*3/uL (0.0-0.012); NRBC Pct Auto 0.0 /100WBC (0.0-0.2); Platelet Count 211 X10*3/uL (160-400); Red Blood Count 4.43 X10*6/uL (4.20-5.50); White Blood Count 4.4 X10*3/uL (4.8-10.8)
[2024-12-20 11:14] LABS: Alanine Aminotransferase 33 U/L (0-31); Albumin Level 4.5 g/dL (3.5-5.0); Alkaline Phosphatase 67 U/L (39-117); Anion Gap 13 (12-20); Aspartate Amino Transferase 22 U/L (5-31); Blood Urea Nitrogen 11 mg/dL (9-16); Calcium 9.0 mg/dL (8.4-10.2); Carbon Dioxide 24 mmol/L (22-29); Chloride 107 mmol/L (96-108); Estimated Glomerular Filt Rate > 60; Potassium 4.1 mmol/L (3.3-5.1); Sodium 140 mmol/L (135-145); Total Protein 8.3 g/dL (6.5-8.0)
--- OUTSIDE RECORDS SUMMARY | 2024-12-20 11:28 | XMS_ITS | Clinical Summary ---
Author Organization [facility] [address] [facility] Address [address] [place] [phone] Phone Care Team Providers Care Cleaner Signs Name Role Phone Seng Alvarez MD Primary Care Provider Allergies No known active allergies Medications clotrimazole-be tamethasone (LOTRISONE) 1-0.05 % cream Apply topically 2 (two) times a day. 30 g 4 03/13/20 25 Active Additional Information Patient not taking.Reported on 09/07/2024 ferrous sulfate 325 mg (65 mg elemental iron) tablet TAKE 1 TABLET BY MOUTH EVERY OTHER DAY 4 Active medroxyPROGESTE Fran 150 mg/mL injection Inject 1 mL into the muscle Every 3 Months. 4 Active blood-glucose meter misc 1 Kit by Does not apply route 4 times daily. Test blood sugars 4 times a day Fasting and 2 hrs after each meal 4 Active FREESTYLE LANCETS MISC 1 Device by Does not apply route 4 times daily. 4 Active blood sugar diagnostic (FreeStyle Lite Strips) test strip 1 Strip by In Vitro route 3 times daily. 4 Active mometasone (ELOCON) 0.1 % cream Apply topically 2 times daily. Active multivit 45/iron/folate 6/dha (PRENATE DHA ORAL) Beturg-PzNan-Wxp h-FA-DHA w/o A (Prenate DHA) 18-0.6-0.4-300 MG Cap Take 1 Tablet by mouth daily 3 Active Active Problems Problem Noted Date Diagnosed Date Anemia in Overview (08/31/2024): DX:Anemia in Encounter for blood transfusion Overview (08/31/2024): DX:Encounter for blood transfusion; COMMENT: hgb 6.9 History of diet controlled g estational diabetes mellitus (GDM) Overview (08/31/2024): DX:History of diet controlled gestational diabetes mellitus (GDM) Kidney stone complicating , third trime ster Overview (08/31/2024): DX:Kidney stone complicating , third trimester hemorrhage Overview (08/31/2024): DX: hemorrhage; COMMENT: qbl 1650, requird transfusino Situational mixed anxiety and depressive disorde r Overview (08/31/2024): DX:Situational mixed anxiety and depressive disorder Immunizations Name Administration Dates Next Due Influenza [...] HISTORICAL COSMETIC SURGERY; COMMENT: Liposuction BELT ABDOMINOPLASTY 04/12/2020 - 04/11/2021 PROCEDURE: HISTORICAL TUMMY TUCK OTHER SURGICAL HISTORY PROCEDURE: HISTORY OTHER; COMMENT: butt lift/, infusion BREAST SURGERY PROCEDURE: RI BREAST AUGMENTATION WITH IMPLANT Medical History Medical [...] cancer Neg Hx Colon cancer Neg Hx Colon polyps Neg Hx Inflammatory bowel disease Neg Hx Ovarian cancer Neg Hx Pancreatic [...] drink = 0.6 oz pur e alcohol) rare Comments No Sex and Gender Information Value Date Recorded Sex Assigned at Female 03/14/2024 6:15 AM EST Legal Sex Female 4:57 AM EST Gender Identity Female 03/14/2024 6:15 AM EST Sexual Orientation Not on file Obstetrics History Para Term AB IAB SAB Ectopic Multiple Livin g Live Births 4 4 3 1 4 4 Date Outcome GA Total Labor Labor/2nd/3rd Weight Sex Type Anes PTL Graciela A1 A5 Name Clin 014 Term 40w 0d 3260 g (115 oz) M Vag-V acuum Epidur al Livin g Delivery Location:[place] 016 36w 0d 2778 g (98 oz) F Vag-S pont Epidur al Livin g Delivery Location:[facility] 021 Term 38w 5d 3657 g (129 oz) M CS-LT ranv Livin g Complications:None,Arrested active phase of labor 024 Term 38w 4d 3430 g (121 oz) F Epidur al N Livin g 8 9 Dennis o, CNM Complications:Shoulder Dysto jacqui,Other Excessive Bleeding Delivery Location:[facility] Comments:GDMA1. PPH QB [id number] transfused 2 units. 40 sec shoulder dystocia Last Filed Vital Signs Vital Sign Reading Time Taken Comments Blood Pressure 118/84 08/14/2024 1:28 PM EDT Pulse 78 08/14/2024 1:28 PM EDT Temperature - - Respiratory Rate - - Oxygen Saturation - - Inhaled Oxygen Concentration - - Weight 69.4 kg (153 lb) 09/07/2024 2:51 PM EDT Height 157.5 cm (5' 2 ) 09/07/2024 2:51 PM EDT Body Mass Index 27.98 09/07/2024 2:51 PM EDT Plan of Treatment Health Maintenance Due Date Last Done Comments Hepatitis B Vaccines (1 of 3 - 19+ 3-dose series) 2013 Social Influencers of Health Screening 03/15/2022 Depression Screening 04/12/2024 07/19/2023 COVID-19 Vaccine ( - season) 2024 01/13/2021, 12/23/2020 Influenza Vaccine (#1) 2024 , 07/24/2021, 05/17/2020, Additional history exists Cervical Cancer Screening: HPV 08/14/2029 08/14/2024, 12/17/2022 DTaP,Tdap,and Td Vaccines (3 - Td or Tdap) 03/30/2033 03/30/2023, 09/12/2020 HIV Screening Completed 11/23/2022 Hepatitis C Screening Completed 11/23/2022 MMR Vaccines Aged Out 06/13/2023 No longer eligi ble based on patient's age to complete this topic Varicella Vaccines Aged Out 06/13/2023, 11/24/2020 No longer eligible based on patient's age to complete this topic HIB Vaccines Aged Out No longer eligi [...] patient's age to complete this topic Meningococcal B Vaccine Aged Out No l onger eligible based on patient's age to complete this topic Pneumococcal Vaccine: Pediatrics (0 to 5 Years) and At-Risk Patients (6 to 49 Years) Aged Out No longer eligible based on patient's age to complete this topic RSV Immunization Patients Under 20 months Aged Out No longer eligible based on patient's age to complete this topic Procedures Procedure Name Priority Date/Time Associated Diagnosis Comments HPV WITH REFLEX GENOTYPE Routine 08/14/2024 2:04 PM EDT Screening for cervical cancer DEPRESSION SCREENING Routine 07/19/2023 HEPATITIS C SCREENING Routine 11/23/2022 HIV SCREENING Routine 11/23/2022 from Last 3 Months or Most Recently Relevant to Health Maintenance Results * HPV with reflex genotype (08/14/2024 2:04 PM EDT) [facility] HPV Negative Negative LAB MICROBIOLOGY METHOD 08/15/2024 1:47 PM EDT [facility] Brushing/Spatula Cervix uteri structure / Unknown 08/14/2024 2:04 PM EDT 08/15/2024 6:38 AM EDT Anna Thomas CNM LAB MOLECULAR DIAGNOSTICS ORDER PERFECTO Final Result [facility] [address] [place] [address], * Depression Screening (07/19/2023) Pathologist [facility] Depression Screening Abstracted Historical Provider HEALTH MAINTENANCE Final Result * HIV Screening (11/23/2022) Pathologist [facility] HIV Screening Abstracted Historical Provider HEALTH MAINTENANCE Final Result * Hepatitis C Screening (11/23/2022) Hepatitis C Screening Abstracted Historical Provider HEALTH MAINTENANCE Final Result from Last 3 Months or Most Recently Relevant to Health Maintenance Insurance [facility] [place] [phone] Care Teams Cleaner Signs Relationship Specialty Start Date End Date Seng Alvarez MD [address] [place] [address] Dr Allison [place] PCP - General Internal Medicine 03/15/18
[2024-12-26 11:13] LABS: Anti Nuclear Antibody Pattern Nuclear, Homogeneous; Anti Nuclear Antibody Screen POSITIVE (NEGATIVE); Anti Nuclear Antibody Titer 1:320 titer
== END 2024-12-20 09:37 | disposition home or self-care (01) ==
LOC: HO.LAB 09:36
PROVIDERS: Visit Provider Physician Assistant Medical
DX: L30.9 Dermatitis, unspecified (principal)
CPT/HCPCS: 36415; 80048; 80076; 85025; 86038; 86039

== ENCOUNTER 2025-01-12 09:14 | Outpatient (AMB) | payer OTHER, SELFPAY ==
--- NOTE | 2025-01-12 09:16 | A.OFFPC_ITS ---
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 Required: No Accompanied by: Self / Same As Patient Allergies No Known Allergies Allergy (Verified 01/12/25 09:17) Medication List - Last Reconciled 01/12/25 by Steve May MD albuterol sulfate 90 mcg/actuation 2 puffs inhalation Q4-6H PRN 7 days ruxolitinib 1.5% (Opzelura) appl topical BID PRN Tobacco use date assessed: 01/12/25 Dental Screening Dental Screen Date: 01/12/25 Did you have a dental visit in the last 12 months?: Yes Did you have a dental problem in the last 6 months where you did not have access to dental care?: No Was dental information given to patient?: Patient has dentist HPI HPI Comments History of Present Illness Details The patient is a 29-year-old female presenting with severe headaches as the primary reason for her visit. The headaches have been persistent for the past six days and are described as a stabbing sensation, rated as a 10 out of 10 on the pain scale, indicating severe intensity. These headaches are accompanied by nausea and diarrhea. The patient reports taking Tylenol, Motrin, and Excedrin in large quantities, but no relief has been observed. Vision changes such as floaters accompany these headaches, but no associated fever, rash, or congestion is reported. 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 She experiences skin lesions on the face exacerbated by sunlight and reports hair loss, for which she is seeing a hospitality internship. In terms of respiratory issues, the patient reports dyspnea, particularly when sick or during exertion, though not consistently wheezy currently. She pr eviously used an albuterol inhaler due to severe illness following a COVID infection but has since lost it and has not sought renewal. The patient also reports experiencing excessive sweating (hyperhidrosis) and seeks advice regarding its management. 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 Additionally, her medical history includes gestational diabetes during previous in 2023, prompting concern for her current glucose regulation status. Medical History: - Systemic Lupus Erythematosus (pending derm and rheumatology consensus) - Dyspnea (post-COVID episode, with curr ent episodes primarily activity-induced) - Hyperhidrosis - Alopecia - History of Gestational Diabetes Mellit (2023) - Anxiety Surgical History: - Breast Augmentation (June 2020) - Abdominoplasty (Tummy Tuck) 2020 Medications: - Albuterol Inhaler (status: lost) - Tylenol & Motrin (used for headache re lief) - Excedrin (used for headache relief) Family History: - Paternal history of heart disease, pos sible heart attacks (medication: aspirin) - Maternal history of diabetes Diagnostic Results: - Labs: Mildly positive JUVENAL at [facility] Social History: - Reports not using tobacco, marijuana, cocaine, or alcohol - Recent , with delivery in Jun - Hyperhidrosis management with commerci al products - Concern regarding excessive sweating a nd associated social effects [facility] Medical History (Updated 01/12/25 @ 09:51 by Steve May MD) Skin lesion Gestational diabetes Headache Lupus (systemic lupus erythematosus) Sinus congestion COVID-19 Social History Housing: Apartment Alcohol intake: never Patient Tobacco Use Status: Never used Tobacco e-Cigarette/Vaping Use: Never Used service: No Current occupational status: employed 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 1. Little interest or pleasure in doing things: not at all 2. Feeling down, depressed, or hopeless: not at all 3. Trouble falling or staying asleep, or sleeping too much: not at all 4. Feeling tired or having little energy: not at all 5. Poor appetite or overeating: not at all 6. Feeling bad about yourself - or that you are a failure or have let yourself or your family down: not at all 7. Trouble concentrating on things, such as reading the newspaper or watching television: not at all 8. Moving or speaking so slowly that other people could have noticed. Or the opposite - being so fidgety or restless that you have been moving around a lot more than usual: not at all 9. Thoughts that you would be better off or of hurting yourself in some way: not at all Total score: 0 Depression Screening Interpretation: Negative Depression Screening Done: Yes 85110 - PHQ-9 Billing: Yes Source: Developed by Drs. Gus Doty, Mayuri Powell, Alan Harvey and colleagues, with an educational joyce from [employer]. Thrive Questionnaire Date Thrive assessed: 01/12/25 I am a: Patient What is your living situation today?: I have a steady place to live Within the past 12 months, did the food you bought not last and you didn't have the money to get more?: Never true Within the past 12 months, did you worry whether your food would run out before you got money to buy more?: Never true Do you have trouble paying for medicines?: No Do you have trouble getting transportation to medical appointments?: No Do you have trouble paying your heating and electricity bill?: No Do you have trouble taking care of your child, family member or friend?: No Do you have trouble with day-to-day activities such as bathing, preparing meals, shopping, managing finances, etc.?: No Are you currently unemployed and looking for a job?: No Are you interested in more education?: No THRIVE Score: 0 AUDIT C Alcohol Use Questionnaire (AUDIT-C) 1. How often do you have a drink containing alcohol?: Monthly or less 2. How many drinks containing alcohol do you have on a typical day when you are drinking?: 1 or 2 3. How often do you have six or more drinks on one occasion?: Less than monthly Total Score: 2 Score Reviewed/Action Taken: Yes YARELY-7 AMB Questionnaire YARELY-7 Date YARELY - 7 assessed: 01/12/25 Feeling nervous, anxious, or on edge: 0 = Not at all Not being able to stop or control worryin = Not at all Worrying too much about different things: 0 = Not at all Trouble relaxin = Not at all Being so restless that it is hard to sit still: 0 = Not at all Becoming easily annoyed or irritable: 0 = Not at all Feeling afraid as if something awful might happen: 0 = Not at all Total YARELY-7 score (0-4 normal; 5-9 mild; 10-14 moderate; 15-21 severe): 0 Source: Developed by Drs. Gus Doty, Mayuri Powell, Alan Harvey and colleagues, with an educational joyce from [employer]. YARELY-7 Assessment Billing YARELY-7 Assessment Tool: YARELY-7 Assessment 63900 Review of Systems Const Details: - General: Denies fever - HEENT: Reports headaches, vision changes (floaters), runny nose - Respiratory: Reports shortness of breath, primarily during illness or exertion; denies current cough - Dermatological: Reports facial skin lesions worsening with sunlight, excessive sweating, and hair loss - Gastrointestinal: Reports nausea, diarrhea, regular bowel movements All systems reviewed & are unremarkable except as reviewed in HPI and above Physical exam (Primary Care) Vital Signs: Last Vital Signs Temp 97.7 F 01/12/25 09:24 Pulse 77 01/12/25 09:24 Resp 14 01/12/25 09:24 BP 102/70 01/12/25 09:24 Pulse Ox 97 01/12/25 09:24 Oxygen Delivery Method Room Air 01/12/25 09:24 Oxygen Flow Rate 155 01/12/25 09:24 BMI result Body Mass Index 28.3 Tobacco/Smoking Status: Tobacco use Status Tobacco use date assessed 01/12/25 01/12/25 09:28 Patient Tobacco Use Status Never used Tobacco 01/12/25 09:28 e-Cigarette/Vaping Use Never Used 01/12/25 09:28 Depression Screening Interpretation: Negative Const Other: General: +Alert and oriented, Well nourished, No acute distress. Eye: Pupils are equal, round and reactive to light, Intact accommodation, Extraocular movements are intact, Normal conjunctiva, Vision changed with floaters. HENT: Normocephalic, Atraumatic, Tympanic membranes are clear, Normal hearing, Oral mucosa is moist, No pharyngeal erythema, Ear canals patent, Sinus tenderness present. Respiratory: Lungs CTA bilaterally, No wheeze, Respirations are non-labored, Reports of congestion. Cardiovascular: Regular rate, Regular rhythm, S1 auscultated, S2 auscultated, No murmur, Good pulses equal in all extremities, Normal peripheral perfusion, No edema. Gastrointestinal: Soft, Non-tender, Non-distended, Normal bowel sounds, No org anomegaly, Reports heightened gastrocolic reflex. Musculoskeletal: Normal range of motion, Normal strength, No tenderness, No swelling, No deformity, Normal gait. Integumentary: Warm, Dry, [place], Intact, Skin lesions present on face & arm, Hair loss reported. Neurologic: Alert, Oriented, Normal sensory, Normal motor function, No focal defects, Cranial Nerves II-XII are grossly intact, Normal deep tendon reflexes, Reports stabbing headaches. Psychiatric: Cooperative, Appropriate mood & affect, Normal judgment. Coding Level of Care Code New Pt Level 3 (05819) Diagnoses Headache R51.9 Headache chronicity pattern: acute headache Headache type: unspecified Intractability: not intractable Sinus congestion R09.81 Systemic lupus erythematosus, unspecified SLE type, unspecified organ involvement status M32.9 Systemic lupus erythematosus type: unspecified Systemic lupus erythematosus organ involvement: unspecified Gestational diabetes mellitus (GDM), antepartum, gestational diabetes method of control unspecified O24.419 Gestational diabetes mellitus control: unspecified Trimester: unspecified trimester Skin lesion L98.9 Additional Codes PHQ-9 - 67375 - PHQ-9 Billing: Yes ([id number]) YARELY-7 Assessment Billing - YARELY-7 Assessment Tool: YARELY-7 Assessment 60094 ([id number]) Assessment & Plan Assessment & Plan (1) Headache: Comment: - The patient reports severe headaches persisting for six days, rated 10/10 in intensity with nausea and diarrhea. Given severe nature, emergency care advised if pain becomes unbearable. - Could be related to sinus congestion - Advised moderation of analgesic intake. Code(s): R51.9 - Headache, unspecified Category: Medical Qualifiers: Headache chronicity pattern: acute headache Headache type: unspecified Intractability: not intractable Qualified Code(s): R51.9 - Headache, unspecified (2) Sinus congestion: Comment: - Discussed management with vtnq-nek-ydmghwr antihistamines for current nasal symptoms. Code(s): R09.81 - Nasal congestion Category: Medical (3) Lupus (systemic lupus erythematosus): Comment: - Positive JUVENAL from hospitality internship compared to [facility] lab. Coordination between specialties to continue. - Advised on using protective measures against sunlight due to lesions and photosensitivity. Coordination with dermatology for alopecia assessment. Code(s): M32.9 - Systemic lupus erythematosus, unspecified Category: Medical Qualifiers: Systemic lupus erythematosus type: unspecified Systemic lupus erythematosus organ involvement: unspecified Qualified Code(s): M32.9 - Systemic lupus erythematosus, unspecified (4) Gestational diabetes: Comment: - History of Gestational Diabetes in 2023 - Will obtain an A1c to evaluate Code(s): O24.419 - Gestational diabetes mellitus in , unspecified control Category: Medical Qualifiers: Gestational diabetes mellitus control: unspecified Trimester: unspecified trimester Qualified Code(s): O24.419 - Gestational diabetes mellitus in , unspecified control (5) Skin lesion: Comment: - Over the arm which could be related to her lupus or asked her to explore the possibility of reaction to her breast implants Code(s): L98.9 - Disorder of the skin and subcutaneous tissue, unspecified Category: Medical Plan: Healthcare Maintenance: - Encouraged COVID testing given the recent symptomatology. - Discussion surrounding potential seasonal vaccination, including influenza. - Exploration of post- glucose status warranted given gestational diabetes history. Patient was informed and verbally consented to the use of an ambient scribe for clinic note documentation during this visit. Plan During the consultation, I articulated the potential for multiple overlapping diagnoses contributing to the patient's presenting complaints, including systemic lupus erythematosus and migraines. The likelihood of systemic involvement was conveyed, particularly focusing on assessing prevalent symptoms such as dyspnea post-COVID and hyperhidrosis in the context of anxiety and potential lupus. I confirmed continuing dermatology evaluation for cutaneous symptoms, emphasizing collaborative care with a item processor to verify JUVENAL related lupus diagnosis accuracy. Additionally, I reiterated the risks of exc essive analgesic use, provided insight into seasonal rhinitis management options, and encouraged suitable symptomatic assessments of breast implants as some patients experience systemic responses. The necessity of a COVID swab was recommended due to symptomatic congruence. I remain available for additional patient queries and arranged for necessary laboratory confirmations and follow- up care provisions as necessary. Orders: Orders Hemoglobin A1c Today O24.419 - Gestational diabetes mellitus in , unspecified control HIV Ab/Ag Today Z76.89 - Persons encountering health services in other specified circumstances Hepatitis A,B,C Profile Today Z76.89 - Persons encountering health services in other specified circumstances SARS-CoV2/FLU/RSV Today Z76.89 - Persons encountering health services in other specified circumstances Medications: Refilled albuterol sulfate 90 mcg/actuation 2 puffs inhalation Q4-6H PRN 6.7 grams 0RF shortness of breath or wheezing 7 days Discontinued cephalexin Discontinued Reason: Patient Completed Course 500 mg PO Q6H 7 days 28 tabs 0RF ferrous sulfate Discontinued Reason: Patient Completed Course 325 mg PO DAILY 10 tabs 0RF doxycycline hyclate Discontinued Reason: Patient Completed Course 100 mg PO BID 7 days 14 caps 0RF cephalexin Discontinued Reason: Patient Completed Course 500 mg PO Q6H 5 days 20 caps 0RF mupirocin 2% Discontinued Reason: Patient Completed Course 1 appl topical TID 22 grams 0RF cephalexin Discontinued Reason: Patient Completed Course 500 mg PO Q8H 7 days 21 caps 0RF Patient Instructions: - Decrease the use of Tylenol and Motrin; seek medical care if headaches worsen. - Use a hat or sunscreen to protect skin from sun exposure. - Prepare for potential allergy-related runny nose with nqll-cjc-zqpnqlx allergy medications. - Practice breathing exercises or take the recommended inhaler when short of breath. - Monitor any skin symptom changes and consult the hospitality internship as advised. - Revisit the lab for glucose testing to monitor for potential diabetes. - Ensure follow-up appointments are scheduled as discussed, based on additional diagnostic results. - Follow up for results or concerns and discuss further management options as required.
[2025-01-12 09:24] VITALS: BP 102/70; PULSE 77; RESP 14; TEMP 36.5; O2SAT 97; BMI 28.3
--- OUTSIDE RECORDS SUMMARY | 2025-01-12 09:40 | XMS_ITS | Clinical Summary ---
Author Organization 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 Role Phone Seng Alvarez MD Primary Care Provider [phone] Allergies No known active allergies Medications clotrimazole-be [...] Active multivit 45/iron/folate 6/dha (PRENATE DHA ORAL) Cbnvzl-YsVvz-Zlv h-FA-DHA w/o A (Prenate DHA) 18-0.6-0.4-300 MG [...] DX:Situational mixed anxiety and depressive disorder Immunizations Immunization Administration Dates Next Due Influenza Quadravalent, MDCK [...] COMMENT: butt lift/, infusion BREAST SURGERY PROCEDURE: IN BREAST AUGMENTATION WITH IMPLANT Medical History Medical [...] Vag-V acuum Epidur al Livin g Delivery Location:[place] 016 36w 0d 2778 g (98 oz) F Vag-S pont Epidur al Livin g Delivery Location:[facility] 021 Term 38w 5d 3657 g (129 oz) M CS-LT ranv Livin g Complications:None,Arrested active phase of labor 024 Term 38w 4d 3430 g (121 oz) F Epidur al N Livin g 8 9 Dennis o, CNM Complications:Shoulder Dysto jacqui,Other Excessive Bleeding Delivery Location:[facility] Comments:GDMA1. PPH QB L1620 transfused 2 [...] of 3 - 19+ 3-dose series) 2013 HPV Vaccines (1 - 3-dose SCDM series) 2021 Social Influencers of Health Screening 03/15/2022 Depression Screening 04/12/2024 07/19/2023 COVID-19 Vaccine (3 - 2024- season) 2024 01/13/2021, 12/23/2020 Influenza Vaccine (#1) 2024 , 07/24/2021, 05/17/2020, Additional history exists Cervical Cancer Screening: HPV 08/14/2029 08/14/2024, 12/17/2022 DTaP,Tdap,and Td Vaccines (3 - Td or Tdap) 03/30/2033 03/30/2023, 09/12/2020 RSV Immunization Adult Patients (1 - 1-dose 75+ series) 2069 HIV Screening Completed 11/23/2022 Hepatitis C Screening [...] with reflex genotype (08/14/2024 2:04 PM EDT) HPV Negative Negative LAB MICROBIOLOGY METHOD 08/15/2024 1:47 PM EDT [facility] Brushing/Spatula Cervix uteri structure / Unknown 08/14/2024 2:04 PM EDT 08/15/2024 6:38 AM EDT Anna Thomas CNM LAB MOLECULAR DIAGNOSTICS ORDER PERFECTO Final Result [facility] [address] [place] [address], [place] [phone] * Depression Screening (07/19/2023) Depression Screening Abstracted Historical Provider HEALTH MAINTENANCE Final Result * HIV Screening (11/23/2022) Pathologist [facility] HIV Screening Abstracted Historical Provider HEALTH MAINTENANCE Final Result * Hepatitis C Screening (11/23/2022) Pathologist [facility] Hepatitis C Screening Abstracted Historical Provider HEALTH MAINTENANCE Final Result from Last 3 Months or Most Recently Relevant to Health Maintenance Insurance [facility] Care Teams Cotton Weigher Operator Relationship Specialty Start Date End Date Seng Alvarez MD [address] [place] [address] Dr Allison MA PCP - General Internal Medicine 03/15/18
== END 2025-01-12 09:51 | disposition home or self-care (01) ==
PROVIDERS: PCP Student in an Organized Health Care Education/Training Program; Visit Provider Student in an Organized Health Care Education/Training Program
DX: R51.9 Headache, unspecified (principal); R09.81 Nasal congestion; M32.9 Systemic lupus erythematosus, unspecified; O24.419 Gestational diabetes mellitus in pregnancy, unspecified control; L98.9 Disorder of the skin and subcutaneous tissue, unspecified

== ENCOUNTER → 2025-01-12 09:14 | Outpatient (BNVA) | payer OTHER, SELFPAY | PROVIDERS: Visit Provider Student in an Organized Health Care Education/Training Program | DX: R51.9 Headache, unspecified (principal); R09.81 Nasal congestion; M32.9 Systemic lupus erythematosus, unspecified; L98.9 Disorder of the skin and subcutaneous tissue, unspecified | CPT/HCPCS: 96127; 99202 ==

== ENCOUNTER 2025-01-12 09:54 | Outpatient (REF) | payer OTHER, SELFPAY ==
[2025-01-12 10:59] LABS: Resp Syncy Virus RNA Qual PCR NEGATIVE (Negative); SARS COV2 PCR INHOUSE NEGATIVE (Negative)
[2025-01-13 04:24] LABS: HBS Num1 22.65 mIU/mL (0-7.99); HBc Num1 0.14 S/CO (0.00-0.79); HBsAGNum1 0.37 S/CO (0.00-0.99); HIV Num 1 0.06 S/CO (0.00-0.99); Hepatitis A Antibody IgM 0.23 Index (0-0.79); Hepatitis B Surface Antigen Negative (Negative); ~HepC Num1 0.12 S/CO (0.00-0.79); ~Hepatitis A Antibody IgM Nonreactive (Nonreactive); ~Hepatitis B Surface Antibody REACTIVE (Nonreactive); ~Hepatitis C Antibody Nonreactive (Nonreactive)
== END 2025-01-12 09:55 | disposition home or self-care (01) ==
LOC: HO.10HDL 09:54
PROVIDERS: Visit Provider Student in an Organized Health Care Education/Training Program
DX: O24.419 Gestational diabetes mellitus in pregnancy, unspecified control (principal); Z76.89 Persons encountering health services in other specified circumstances; Z01.84 Encounter for antibody response examination; Z11.4 Encounter for screening for human immunodeficiency virus [HIV]; Z11.59 Encounter for screening for other viral diseases
CPT/HCPCS: 36415; 83036; 86704; 86706; 86709; 86803; 87340; 87389; 87637